=== PATIENT | male | born 1945 | race Two or more races ===

== ENCOUNTER 2020-02-19 11:25 | Outpatient (REF) | payer MEDICARE, OTHER, SELFPAY ==
[2020-02-19 15:13] LABS: PSA,Total (Free>4and<10) 1.52 ng/mL (0.00-4.00)
== END 2020-02-19 11:26 | disposition home or self-care (01) ==
LOC: HO.10HDL 11:25
PROVIDERS: Visit Provider Urology
DX: N40.1 Benign prostatic hyperplasia with lower urinary tract symptoms (principal); Z12.5 Encounter for screening for malignant neoplasm of prostate
CPT/HCPCS: 84153

== ENCOUNTER 2021-01-14 10:55 | Outpatient (REF) | payer MEDICARE, OTHER, SELFPAY ==
[2021-01-14 14:02] LABS: Prostate Specific Antigen 1.87 ng/mL (<0.05-4.0)
== END 2021-01-14 10:56 | disposition home or self-care (01) ==
LOC: HO.10HDL 10:55
PROVIDERS: Visit Provider Urology
DX: R97.20 Elevated prostate specific antigen [PSA] (principal); Z12.5 Encounter for screening for malignant neoplasm of prostate
CPT/HCPCS: 36415; 84153

== ENCOUNTER → 2021-01-21 12:53 | Outpatient (BNVA) | payer MEDICARE, OTHER, SELFPAY | PROVIDERS: PCP Internal Medicine; Visit Provider Urology | DX: Z13.89 Encounter for screening for other disorder (principal) | CPT/HCPCS: Q3014 ==

== ENCOUNTER 2022-01-07 10:35 | Outpatient (REF) | payer MEDICARE, OTHER, SELFPAY ==
[2022-01-07 14:53] LABS: Prostate Specific Antigen 1.86 ng/mL (<0.05-4.0)
== END 2022-01-07 10:36 | disposition home or self-care (01) ==
LOC: HO.10HDL 10:35
PROVIDERS: Visit Provider Urology
DX: Z12.5 Encounter for screening for malignant neoplasm of prostate (principal); N40.1 Benign prostatic hyperplasia with lower urinary tract symptoms; N13.8 Other obstructive and reflux uropathy
CPT/HCPCS: 36415; 84153

== ENCOUNTER → 2022-01-14 08:23 | Outpatient (BNVA) | payer MEDICARE, OTHER, SELFPAY | PROVIDERS: PCP Internal Medicine; Visit Provider Urology | DX: N52.9 Male erectile dysfunction, unspecified (principal); N40.0 Benign prostatic hyperplasia without lower urinary tract symptoms | CPT/HCPCS: Q3014 ==

== ENCOUNTER 2023-01-14 09:21 | Outpatient (AMB) | payer MEDICARE, OTHER, SELFPAY ==
--- NOTE | 2023-01-14 09:28 | MHC.OFFVIS ---
Intake Intake Visit Reasons: 1Y PVR(BPH) Intake Note: Patient is present for BPH/PVR Follow Up Current Medication: Doxazosin Blood Thinners: None PVR: 161 Sales Operations Manager Required: No Accompanied by: Self / Same As Patient Allergies No Known Allergies Allergy (Verified 01/14/23 09:41) HPI HPI Comments History of Present Illness Details Luiz is a very pleasant male. He is a patient of Dr Olvera. He is seen for the following urologic conditions - lower urinary tract symptoms October 2021 admission to hospital with perforated diverticulitis with high output ileostomy Discussed maintaining fluid intake Encouraged increased protein. Did not tolerate Ensure. Suggested increasing ice cream intake. Lower urinary tract symptoms Says he has effective emptying and good stream Remains on doxazosin 1 mg daily for blood pressure and that assists his prostate PSA remaining in range 01/30 1.8, 01/01 1.9 Review in 12 months Erectile dysfunction - not an active issue [facility] Medical History (Updated 01/14/23 @ 13:50 by Harmeet Storey MD) Diabetes mellitus, type II BPH (benign prostatic hyperplasia) Erectile dysfunction Enlarged prostate with lower urinary tract symptoms (LUTS) Nocturia Surgical History (Updated 01/14/23 @ 09:39 by LISA Downing) Hx of colectomy Social History Patient Tobacco Use Status: Former Tobacco user Review of Systems Const Denies chills and Denies fever(s) Card Reports no additional complaints and Denies syncope Resp Denies cough GI Denies abdominal pain and Denies heartburn Reports as per HPI and Denies change in libido Neuro Denies syncope Psych Denies change in libido Endo Denies change in libido Physical Exam Const General: cooperative, healthy appearing, comfortable and no acute distress Orientation/consciousness: patient oriented x3 HEENT Face and sinus: Yes normal facial exam Mouth: moist mucous membranes Neck Neck: Yes normal visual inspection, Yes full ROM and Yes trachea midline Chest Chest palpation & inspection: normal inspection of the chest Resp Effort & Inspection: normal respiratory effort, able to speak in complete sentences and no respiratory distress GI Inspection: Yes normal to inspection Back/Spine/Pelvis Cervical Spine: normal cervical lordosis Thoracic/Lumbar Spine: thoracic and lumbar spine normal to inspection Skin General skin exam: no rashes or lesions noted Neuro General: patient oriented x3, gait normal, tone normal and moves all extremities Extrem General: Yes normal to inspection and Yes capillary refill normal Office Procedures Post Void Residual Post Residual Void Post Void Residual (PVR): 161 [id number]-[id number] Void Residual by ultrasound Results AMB Urinalysis, Automated UA Leukoctes 0 Delma/uL Last Edit by LISA Downing on 01/14/23 09:41 UA Nitrite Negative Last Edit by Darrell James Nico on 01/14/23 09:41 UA Urobilinogen 0.2 mg/dL Last Edit by Darrell James Nico on 01/14/23 09:41 UA Protein 15 mg/dL Last Edit by Darrell James Nico on 01/14/23 09:41 UA pH 6.5 Last Edit by Darrell James Nico on 01/14/23 09:41 UA Blood 25 Daniel/uL Last Edit by Darrell James Nico on 01/14/23 09:41 UA Specific [place] 1.015 Last Edit by Darrell James Nico on 01/14/23 09:41 UA Ketone Negative Last Edit by Darrell James Nico on 01/14/23 09:41 UA Bilirubin 0 mg/dL Last Edit by Darrell James Nico on 01/14/23 09:41 UA Glucose 0 mg/dL Last Edit by Darrell James [facility] on 01/14/23 09:41 Results Reviewed Results Reviewed: Laboratory Last Values Urine pH (Auto) 6.5 01/14/23 09:31 Specific [place] (Auto) 1.015 01/14/23 09:31 Urine Protein (Auto) 15 mg/dL 01/14/23 09:31 Glucose (UA)(Auto) 0 mg/dL 01/14/23 09:31 Urine Ketones (Auto) Negative 01/14/23 09:31 Urine Blood (Auto) 25 Daneil/uL 01/14/23 09:31 Urine Nitrite (Auto) Negative 01/14/23 09:31 Urine Bilirubin (Auto) 0 mg/dL 01/14/23 09:31 Urine Urobilinogen (Auto) 0.2 mg/dL 01/14/23 09:31 Leukocyte Esterase (Auto) 0 Delma/uL 01/14/23 09:31 Assessment & Plan Assessment & Plan (1) BPH (benign prostatic hyperplasia): Code(s): N40.0 - Benign prostatic hyperplasia without lower urinary tract symptoms Qualifiers: Lower urinary tract symptom presence: symptoms present Lower urinary tract symptom detail: urinary frequency Qualified Code(s): N40.1 - Benign prostatic hyperplasia with lower urinary tract symptoms; R35.0 - Frequency of micturition (2) Erectile dysfunction: Code(s): N52.9 - Male erectile dysfunction, unspecified Qualifiers: Erectile dysfunction type: vasculogenic Vasculogenic erectile dysfunction type: due to arterial insufficiency Qualified Code(s): N52.01 - Erectile dysfunction due to arterial insufficiency Orders: Orders AMB Urinalysis Automated Today Z13.9 - Encounter for screening, unspecified AMB Post Void Residual by ultrasound Today N39.8 - Other specified disorders of urinary system Patient Instructions: Imaging studies, laboratory and physical exam results were discussed and reviewed in detail. No major barriers to patient understanding were identified. An opportunity to ask questions regarding the treatment plan was provided. All questions were answered. The patient expressed understanding and agreement with the above treatment plan. The patient is aware they should contact our office by phone for worsening of their current condition or the appearance of new urologic symptoms. Compliance is encouraged with any medications and followup testing that is ordered. It is a privilege to participate in the urologic care of your patient. If you have any questions or concerns regarding treatment for the above conditions, or other urologic issues, please do not hesitate to contact me. The office telephone contact is [phone]. This note is constructed using voice recognition software. While every effort has been made to ensure accuracy compliance quality performance analyst errors may have been included. Yours sincerely, Dr Harmeet Storey MD, [facility] - Urology Providers of Expert, Compassionate Care for the Genitourinary System Coding Level of Care Code Est Pt Level 4 (75824) Diagnoses Benign prostatic hyperplasia with urinary frequency N40.1; R35.0 Lower urinary tract symptom presence: symptoms present Lower urinary tract symptom detail: urinary frequency Erectile dysfunction due to arterial insufficiency N52.01 Erectile dysfunction type: vasculogenic Vasculogenic erectile dysfunction type: due to arterial insufficiency CPT Codes Post Residual Void - PVR CPT Code: 79235-Brst Void Residual by ultrasound ([id number])
== END 2023-01-14 10:18 | disposition home or self-care (01) ==
PROVIDERS: PCP Internal Medicine; Visit Provider Urology
DX: N40.1 Benign prostatic hyperplasia with lower urinary tract symptoms (principal); R35.0 Frequency of micturition; N52.01 Erectile dysfunction due to arterial insufficiency; Z13.9 Encounter for screening, unspecified
CPT/HCPCS: 99213

== ENCOUNTER → 2023-01-14 09:21 | Outpatient (BNVA) | payer MEDICARE, OTHER, SELFPAY | PROVIDERS: Visit Provider Urology | DX: N40.1 Benign prostatic hyperplasia with lower urinary tract symptoms (principal); R35.0 Frequency of micturition; N52.01 Erectile dysfunction due to arterial insufficiency | CPT/HCPCS: 51798; 81003; 99212 ==

== ENCOUNTER 2023-09-21 15:02 | Outpatient (AMB) | payer MEDICARE, OTHER, SELFPAY ==
--- NOTE | 2023-09-21 15:29 | A.OFFVIS_ITS ---
Intake Visit Reasons: BPH follow up Intake Note: Patient is Present for Follow Up Urology Medication: Doxazosin Antibiotic Allergies:None Blood Thinners: None Last PVR: 121 PVR Today: 21 Allergies No Known Allergies Allergy (Verified 09/21/23 15:31) Medication List - Last Reconciled 09/21/23 by Harmeet Storey MD amlodipine 10 mg PO DAILY atorvastatin 40 mg PO DAILY doxazosin 4 mg PO BEDTIME 90 days meloxicam 15 mg PO DAILY metformin 500 mg PO BID simvastatin 80 mg PO DAILY tramadol 50 mg PO DAILY PRN valsartan-hydrochlorothiazide 320-25 mg 1 tab PO DAILY HPI Comments Details: Luiz is a very pleasant male. He is a patient of Dr Olvera. He is seen for the following urologic conditions - lower urinary tract symptoms Yearly review PVR 20 cc October 2021 admission to hospital with perforated diverticulitis with high output ileostomy Discussed maintaining fluid intake Encouraged increased protein. Did not tolerate Ensure. Suggested increasing ice cream intake. Lower urinary tract symptoms Says he has effective emptying and good stream Remains on doxazosin 1 mg daily for blood pressure and that assists his prostate PSA remaining in range 01/30 1.8, 01/01 1.9 Review in 12 months Erectile dysfunction - not an active issue [facility] Medical History Diabetes mellitus, type II BPH (benign prostatic hyperplasia) Erectile dysfunction Enlarged prostate with lower urinary tract symptoms (LUTS) Nocturia Surgical History Hx of colectomy Social History Patient Tobacco Use Status: Former Tobacco user Review of Systems Const Denies chills and Denies fever(s) Card Reports no additional complaints and Denies syncope Resp Denies cough GI Denies abdominal pain and Denies heartburn Reports as per HPI and Denies change in libido Neuro Denies syncope Psych Denies change in libido Endo Denies change in libido Physical Exam Const General: cooperative, healthy appearing, comfortable and no acute distress Orientation/consciousness: patient oriented x3 HEENT Face and sinus: Yes normal facial exam Mouth: moist mucous membranes Neck Neck: Yes normal visual inspection, Yes full ROM and Yes trachea midline Chest Chest palpation & inspection: normal inspection of the chest Resp Effort & Inspection: normal respiratory effort, able to speak in complete sentences and no respiratory distress GI Inspection: Yes normal to inspection Back/Spine/Pelvis Cervical Spine: normal cervical lordosis Thoracic/Lumbar Spine: thoracic and lumbar spine normal to inspection Skin General skin exam: no rashes or lesions noted Neuro General: patient oriented x3, gait normal, tone normal and moves all extremities Extrem General: Yes normal to inspection and Yes capillary refill normal Office Procedures Post Void Residual Post Residual Void Post Void Residual (PVR): 21 [id number]-[id number] Void Residual by ultrasound Assessment & Plan Assessment & Plan (1) Erectile dysfunction: Code(s): N52.9 - Male erectile dysfunction, unspecified Category: Medical Qualifiers: Erectile dysfunction type: vasculogenic Vasculogenic erectile dysfunction type: due to arterial insufficiency Qualified Code(s): N52.01 - Erectile dysfunction due to arterial insufficiency (2) BPH (benign prostatic hyperplasia): Code(s): N40.0 - Benign prostatic hyperplasia without lower urinary tract symptoms Category: Medical Qualifiers: Lower urinary tract symptom presence: symptoms present Lower urinary tract symptom detail: urinary frequency Qualified Code(s): N40.1 - Benign prostatic hyperplasia with lower urinary tract symptoms; R35.0 - Frequency of micturition Plan year;y f/u Orders: Orders AMB Post Void Residual by ultrasound 09/21/23 N40.1 - Benign prostatic hyperplasia with lower urinary tract symptoms, R35.0 - Frequency of micturition Prostate Specific Antigen 364 Days N40.1 - Benign prostatic hyperplasia with lower urinary tract symptoms, R35.0 - Frequency of micturition Patient Instructions: Imaging studies, laboratory and physical exam results were discussed and reviewed in detail. No major barriers to patient understanding were identified. An opportunity to ask questions regarding the treatment plan was provided. All questions were answered. The patient expressed understanding and agreement with the above treatment plan. The patient is aware they should contact our office by phone for worsening of their current condition or the appearance of new urologic symptoms. Compliance is encouraged with any medications and followup testing that is ordered. It is a privilege to participate in the urologic care of your patient. If you have any questions or concerns regarding treatment for the above conditions, or other urologic issues, please do not hesitate to contact me. The office telephone contact is [phone]. This note is constructed using voice recognition software. While every effort has been made to ensure accuracy membership manager errors may have been included. Yours sincerely, Dr Harmeet Storey MD, [facility] - Urology Providers of Expert, Compassionate Care for the Genitourinary System Coding Level of Care Code Est Pt Level 4 (80772) Diagnoses Erectile dysfunction due to arterial insufficiency N52.01 Erectile dysfunction type: vasculogenic Vasculogenic erectile dysfunction type: due to arterial insufficiency Benign prostatic hyperplasia with urinary frequency N40.1; R35.0 Lower urinary tract symptom presence: symptoms present Lower urinary tract symptom detail: urinary frequency CPT Codes Post Residual Void - PVR CPT Code: 46024-Tlzg Void Residual by ultrasound ([id number])
== END 2023-09-21 16:14 | disposition home or self-care (01) ==
PROVIDERS: PCP Internal Medicine; Visit Provider Urology
DX: N52.01 Erectile dysfunction due to arterial insufficiency (principal); N40.1 Benign prostatic hyperplasia with lower urinary tract symptoms; R35.0 Frequency of micturition
CPT/HCPCS: 99214

== ENCOUNTER → 2023-09-21 15:02 | Outpatient (BNVA) | payer MEDICARE, OTHER, SELFPAY | PROVIDERS: PCP Internal Medicine; Visit Provider Urology | DX: N40.1 Benign prostatic hyperplasia with lower urinary tract symptoms (principal); R35.0 Frequency of micturition; N52.01 Erectile dysfunction due to arterial insufficiency | CPT/HCPCS: 51798; 99212 ==

== ENCOUNTER 2024-03-07 09:14 | Outpatient (AMB) | payer MEDICARE, OTHER, SELFPAY ==
--- NOTE | 2024-03-07 09:33 | MHC.OFFVIS ---
Vital Signs 03/07/24 09:47 Height 5 ft 6 in Weight 150 lb 5.684 oz BMI 24.3 BP 142/70 H Blood Pressure Location Rt brachial Position Sitting Respiration 18 Pulse 72 Pulse Source Pulse Oximeter Pulse Oximetry (%) 97 Oxygen Delivery Method Room Air Intake Visit Reasons: Arthritis/ATC MED REC RECIEVED Intake Note: Patient presents for Arthritis. C/O right shoulder pain Allergies metoprolol Allergy (Severe, Verified 03/07/24 09:38) Swelling HPI Comments Details: He received cortisone injection October 2023 with benefit in his right shoulder. A month ago he started experiencing right shoulder pain with certain movements. He continues to do exercises at home learned from physical therapy in the past. He uses tramadol as needed for pain control but he also experiences pain from arthritis in his back. [facility] Medical History Diabetes mellitus, type II BPH (benign prostatic hyperplasia) Erectile dysfunction Enlarged prostate with lower urinary tract symptoms (LUTS) Nocturia Surgical History Hx of colectomy Social History (Updated 03/07/24 @ 09:47 by ARGENTINA Meneses) Household Members: Spouse Housing: Condominium Alcohol intake: current Comment: [facility] Patient Tobacco Use Status: Former Tobacco user Years Smoked: 15 Review of Systems Const All systems reviewed & are unremarkable except as noted in HPI and below Physical Exam Vital Signs: Last Vital Signs Pulse 72 03/07/24 09:47 Resp 18 03/07/24 09:47 BP 142/70 H 03/07/24 09:47 Pulse Ox 97 03/07/24 09:47 Oxygen Delivery Method Room Air 03/07/24 09:47 BMI result Body Mass Index 24.3 Const Other: General: Comfortable Skin: No lesions seen MSK: No tenderness of joints. No subacromial tenderness. Good range of motion of his shoulder. Assessment & Plan Assessment & Plan (1) Osteoarthritis of right glenohumeral joint: Comment: Intermittent pain with range of motion. Pain is tolerable. We discussed conservative management. Code(s): M19.011 - Primary osteoarthritis, right shoulder Category: Medical Plan: He will call office if pain progresses for cortisone injection Continue exercises daily for shoulder strengthening He will continue swimming regularly Return to clinic in 3 months or sooner if needed Coding Level of Care Code Est Pt Level 3 (83137) Complex EM visit Add On G2211 Diagnoses Osteoarthritis of right glenohumeral joint M19.011
[2024-03-07 09:47] VITALS: BP 142/70; PULSE 72; RESP 18; O2SAT 97; BMI 24.3
== END 2024-03-07 10:06 | disposition home or self-care (01) ==
PROVIDERS: PCP Internal Medicine; Visit Provider Internal Medicine Rheumatology
DX: M19.011 Primary osteoarthritis, right shoulder (principal)
CPT/HCPCS: 99213; G2211

== ENCOUNTER → 2024-03-07 09:14 | Outpatient (BNVA) | payer MEDICARE, OTHER, SELFPAY | PROVIDERS: PCP Internal Medicine; Visit Provider Internal Medicine Rheumatology | DX: M19.011 Primary osteoarthritis, right shoulder (principal); M47.9 Spondylosis, unspecified | CPT/HCPCS: 99212 ==

== ENCOUNTER 2024-06-06 13:55 | Outpatient (AMB) | payer MEDICARE, OTHER, SELFPAY ==
[2024-06-06 14:03] VITALS: BP 128/58; PULSE 78; O2SAT 98; BMI 25.2
--- NOTE | 2024-06-06 14:03 | MHC.OFFVIS ---
Vital Signs 06/06/24 14:03 Height 5 ft 6 in Weight 156 lb 4.924 oz BMI 25.2 BP 128/58 L Blood Pressure Location Rt brachial Position Sitting Pulse 78 Pulse Source Pulse Oximeter Pulse Oximetry (%) 98 Oxygen Delivery Method Room Air Intake Visit Reasons: 3 mo f/u Intake Note: Patient presents for Arthritis follow up. Allergies metoprolol Allergy (Severe, Verified 03/07/24 09:38) Swelling HPI HPI 3 mo f/u: Details: He is doing well. About 2 months ago he had increased shoulder pain, which he treated with ibuprofen and Tylenol. Resolved. He exercises daily with weight lifting and stretching. PFSH Medical History Diabetes mellitus, type II BPH (benign prostatic hyperplasia) Erectile dysfunction Enlarged prostate with lower urinary tract symptoms (LUTS) Nocturia Surgical History Hx of colectomy Social History Household Members: [facility] Alcohol intake: current Comment: OCC Patient Tobacco Use Status: Former Tobacco user Years Smoked: 15 Review of Systems Const All systems reviewed & are unremarkable except as noted in HPI and below Physical Exam Vital Signs: Last Vital Signs Pulse 78 06/06/24 14:03 BP 128/58 L 06/06/24 14:03 Pulse Ox 98 06/06/24 14:03 Oxygen Delivery Method Room Air 06/06/24 14:03 BMI result Body Mass Index 25.2 Const Other: General: Comfortable Skin: No lesions seen MSK: No tenderness of joints. No subacromial tenderness. Good range of motion of his shoulder. Assessment & Plan Assessment & Plan (1) Osteoarthritis of right glenohumeral joint: Comment: Pain resolved with home exercise program. Code(s): M19.011 - Primary osteoarthritis, right shoulder Category: Medical Plan: He will call office if pain returns for cortisone injection Continue exercises daily for shoulder strengthening Return to clinic in 6 months or sooner if needed Coding Level of Care Code Est Pt Level 3 (56729) Complex EM visit Add On G2211 Diagnoses Osteoarthritis of right glenohumeral joint M19.011
--- OUTSIDE RECORDS SUMMARY | 2024-06-06 17:23 | XMS_ITS | Continuity of Care Document ---
Author Organization [facility] Address [address] [place] [address]- Care Team Providers Care Java Analyst Name Role Phone Jackson Taylor MD Primary Care Physician [phone] Encounter [facility] Date(s): 05/05/24 - 05/12/24 [facility] [address] [place] [address]- Encounter Diagnosis Dysfunction of both eustachian tubes(Discharge Diagnosis) - 05/05/24 Attending Physician: Not on Staff, Attending MD Encounter Type: Office Visit Allergies, Adverse Reactions, Alerts Substance Criticality Severity Reaction Reaction Severity Status Metoprolol Succinate ER facial swelling Active Immunizations Given and Recorded Vaccine Date Status Refusal Reason influenza virus vaccine, inactivated 01/07/24 Burton rded influenza virus vaccine, inactivated 1 02/16/22 Gi myron influenza virus vaccine, inactivated 02/17/15 Burton rded influenza virus vaccine, inactivated 02/25/14 Burton rded influenza virus vaccine, inactivated 2 01/13/12 Gi myron influenza virus vaccine, inactivated 3 02/23/11 Gi myron influenza virus vaccine, inactivated 4 01/13/10 Gi myron SARS-CoV-2(COVID-19)mRNA-LNP vac([id number]) 01/07/24 Recorded SARS-CoV-2(COVID-19)mRNA-LNP vac([id number]) 02/28/23 Recorded pneumococcal 20-valent conjugate vaccine 01/13/23 Recorded tetanus/diphtheria/pertussis, acel(Tdap) 01/13/23 Recorded tetanus/diphtheria/pertussis, acel(Tdap) 5 08/04/10 Given [id number] bivalent booster vax 01/05/22 Recorded SARS-CoV-2 (COVID-19) mRNA-1273 vaccine 06/13/20 R ecorded SARS-CoV-2 (COVID-19) mRNA-1273 vaccine 05/08/20 R ecorded pneumococcal 13-valent vaccine 02/16/17 Recorded pneumococcal 13-valent vaccine 02/17/15 Recorded hepatitis B adult vaccine 6 02/12/12 Given hepatitis B adult vaccine 01/13/12 Given pneumococcal 23-valent vaccine 7 08/04/10 Given 1Result Comment: [facility] [id number] 2Admin Note: VIS - 3Admin Note: VIS GIVEN 11/04/2010 4Admin Note: VIS GIVEN 11/19/09 [facility] 5Admin Note: vis given 6Admin Note: VIS GIVEN VIS DATE 05/2011 7Admin Note: VIS GIVEN 07/19 Medications acetaminophen 325 mg oral tablet 975 mg, By Mouth, Every 6 hours, Refills 0, Maintenance, 10/25/22 10:46:00 AM EDT, Partial fill uponpatient request if the prescription is for a schedule II opioid drug. Start Date: 10/25/22 Status: Ordered Repeat number: 1 amLODIPine 5 mg oral tablet 5 mg, 1, tablet, By Mouth, Daily, # 90 tablet, Refills 0, Tot. Refills 0, Maintenance, 05/11/24 9:45:00 AM EST, Route to Pharmacy Electronically, [facility] #[id number], Partial fill upon patientrequest if the prescription is for a schedule II opioid drug., 168, cm, 05/11/24 9:31:00 EST, Height, 69.9, kg, 05/11/24 9:27:00 EST, Dry Weight Start Date: 05/11/24 Status: Ordered Quantity: 90.0 Unit: tablet Repeat number: 1 atorvastatin 40 mg oral tablet 1 tablet, By Mouth, Daily, THIS. REPLACES SIMVASTATIN, # 90 tablet, 3 Refills, Maintenance, 10/21/23 3:30:00 PM EDT, [facility] #[id number], 168, cm, 09/14/23 10:27:00 EDT, Height, 64.6, kg,08/09/23 13:06:00 EDT, Dry Weight Start Date: 10/21/23 Status: Ordered Quantity: 90.0 Unit: tablet Repeat number: 1 atropine-diphenoxylate 0.025 mg-2.5 mg oral tablet 2, tablet, By Mouth, 4 times a day, PRN, TAKE 1/2 HOUR BEFORE MEALS AND AT BEDTIME, # 240 capsule, Refills 3, Tot. Refills 3, Maintenance, for loose stool, 03/21/24 12:02:00 PM EST, Route to PharmacyElectronically, [facility] #[id number] Tablet, Partial fill upon patient request if the prescription is for a schedule II opioid drug., 168, cm, 01/25/24 13:29:00 EDT, Height, 64.6, kg, 08/08/2412:06:00 EDT, Dry Weight Start Date: 03/21/24 Status: Ordered Quantity: 240.0 Unit: capsule Repeat number: 4 Holliday Saline Mist 0.65% nasal spray 2 sprays, Nares, Both, 4 times a day, # 1 each, 0 Refills, Maintenance, 05/05/24 4:37:00 PM EST, [facility] #[id number], Partial fill upon patient request if the prescription is for a schedule IIopioid drug., 2 sprays Nares, Both 4 times a day, 168, cm, 05/05/24 16:06:00 EST, Height, 70, kg, 04/24/24 14:23:00 EST, Dry Weight Start Date: 05/05/24 Status: Ordered Quantity: 1.0 Unit: each Repeat number: 1 Indication: Unspecified Eustachian tube disorder, bilateral Benefiber oral powder for reconstitution 10 mL, By Mouth, 2 times a day, PRN Loose Stool, Mix in pudding, Yogart, or applesauce. can take 3 times a day if needed, # 477 Gm, 3 Refills, Maintenance, 09/27/23 2:09:00 PM EDT, REC Powder, [facility] #[id number], Partial fill upon patient request if the prescription is for a schedule II opioid drug., 10 mL By Mouth 2 times a day,PRN:Loose Stool,Instr:Mix in pudding, Yogart, or applesauce.can take 3 times a day if needed, 168, cm, 09/14/23 10:27:00 EDT, Height, 64.6, kg, 08/09/23 13:06:00 EDT, Dry Weight Start Date: 09/27/23 Status: Ordered Quantity: 477.0 Unit: g Repeat number: 4 Claritin 24 Hour Allergy 10 mg oral tablet 1 tablet = 10 mg, By Mouth, Daily, # 30 tablet, 0 Refills, Maintenance, 05/05/24 4:38:00 PM EST, Tablet, [facility] #[id number], Partial fill upon patient request if the prescription is for a schedule II opioid drug., 168, cm, 05/05/24 16:06:00 EST, Height, 70, kg, 04/24/24 14:23:00 EST, Dry Weight Start Date: 05/05/24 Status: Ordered Quantity: 30.0 Unit: tablet Repeat number: 1 Indication: Unspecified Eustachian tube disorder, bilateral D3 By Mouth, Daily, 0 Refills, Maintenance, 06/13/21 10:35:00 AM EST, Partial fill upon patient request if the prescription is for a schedule II opioid drug. Start Date: 06/13/21 Status: Ordered Repeat number: 1 doxazosin 4 mg oral tablet 1 tablet = 4 mg, By Mouth, Daily, TAKE 1 TABLET BY MOUTH AT BEDTIME, # 90 tablet, 3 Refills, Maintenance, 04/16/23 5:42:00 PM EST, Tablet, [facility] #[id number], Partial fill upon patient requestif the prescription is for a schedule II opioid drug., 168, cm, 04/16/23 16:51:00 EST, Height, 74.2, kg, 10/30/22 4:05:00 EDT, Dry Weight Start Date: 04/16/23 Status: Ordered Quantity: 90.0 Unit: tablet Repeat number: 4 ferrous sulfate 325 mg oral enteric coated tablet 1, tablet, By Mouth, Daily, # 90 tablet, Refills 0, Maintenance, 10/27/23 10:54:00 PM EDT, Route to Pharmacy Electronically, [facility] #[id number], 168, cm, 09/14/23 10:27:00 EDT, Height, 64.6, kg, 08/09/23 13:06:00 EDT, Dry Weight Start Date: 10/27/23 Status: Ordered Quantity: 90.0 Unit: tablet Repeat number: 1 fluticasone 50 mcg/inh nasal spray 1 sprays = 50 mcg, Nares, Both, 2 times a day, # 16 Gm, 0 Refills, Maintenance, 05/05/24 4:37:00 PM EST, [place], [facility] #[id number], Partial fill upon patient request if the prescription is for a schedule II opioid drug., 1 sprays Nares, Both 2 times a day, 168, cm, 05/05/24 16:06:00 EST, Height, 70, kg, 04/24/24 14:23:00 EST, Dry Weight Start Date: 05/05/24 Status: Ordered Quantity: 16.0 Unit: g Repeat number: 1 Indication: Unspecified Eustachian tube disorder, bilateral Freestyle Lite Test Strips See Instructions, # 100 each, Refills 3, Tot. Refills 3, Maintenance, Use to check blood sugar daily as needed E11.65, 01/06/23 2:58:00 PM EDT, Supply, 168, cm, 01/06/23 14:57:00 EDT, Height, 74.2, kg, 10/30/22 4:05:00 EDT, Dry Weight Start Date: 01/06/23 Status: Ordered Quantity: 100.0 Unit: each Repeat number: 4 Lomotil 0.025 mg-2.5 mg oral tablet 1, tablet, By Mouth, 4 times a day, 30 minutes before meals and at bedtime, # 120 tablet, Refills 3, Tot. Refills 3, Maintenance, 09/27/23 4:19:00 PM EDT, Route to Pharmacy Electronically, [facility] #[id number] Tablet, Partial fill upon patient request if the prescription is for a schedule II opioid drug., 168, cm, 09/14/23 10:27:00 EDT, Height, 64.6, kg, 08/09/23 13:06:00 EDT, Dry Weight Start Date: 09/27/23 Status: Ordered Quantity: 120.0 Unit: tablet Repeat number: 4 loperamide 2 mg oral capsule 1-2 capsule, By Mouth, Every 6 hours, PRN, # 100 capsule, Refills 1, Tot. Refills 1, Maintenance, as needed for loose stool, 04/13/24 7:49:00 AM EST, Route to Pharmacy Electronically, [facility] #[id number], 168, cm, 04/04/24 11:17:00 EST, Height, 64.6, kg, 08/09/23 13:06:00 EDT, Dry Weight Start Date: 04/13/24 Status: Ordered Quantity: 100.0 Unit: capsule Repeat number: 2 traMADol 50 mg oral tablet 1 tablet, By Mouth, Daily, PRN NEEDED FOR MODERATE PAIN, # 30 tablet, 0 Refills, Maintenance, 04/11/24 7:42:00 PM EST, [facility] #[id number], 168, cm, 04/04/24 11:17:00 EST, Height, 64.6, kg, 08/09/23 13:06:00 EDT, Dry Weight Start Date: 04/11/24 Status: Ordered Quantity: 30.0 Unit: tablet Repeat number: 1 valsartan 320 mg oral tablet 1 tablet = 320 mg, By Mouth, Daily, # 90 tablet, 0 Refills, Maintenance, 04/24/24 2:35:00 PM EST, [facility] #[id number], 168, cm, 04/24/24 14:27:00 EST, Height, 70, kg, 04/24/24 14:23:00 EST, Dry Weight Start Date: 04/24/24 Status: Ordered Quantity: 90.0 Unit: tablet Repeat number: 1 Vitamin D 95846 iu oral capsule 50,000 International_Units, By Mouth, Daily, Refills 0, Maintenance, 06/14/23 1:11:00 PM EST, Partialfill upon patient request if the prescription is for a schedule II opioid drug. Start Date: 06/14/23 Status: Ordered Repeat number: 1 zolpidem 5 mg oral tablet 1 tablet, By Mouth, Daily at bedtime, PRN NEEDED FOR SLEEP, DO NOT FILL UNTIL 05/15/24; PLEASE DISREGARD PREVIOUS RX. 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 Confirmed Active History of diverticulitis Confirmed Active Hyperlipidemia Confirmed Active Hypertension Confirmed Active Insomnia Confirmed Active Elevated LFTs Confirmed Active Microscopic hematuria Confirmed Active Colon polyp Confirmed Active Right shoulder pain; [facility] Confirmed Active Diagnosis Diagnosis Type Effective Dates Health Status Clinical Service Informant Dysfunction of both eustachian tubes Discharge Diagnosis 05/05/24 Vital Signs Most recent to oldest [Reference Range]: 1 Height 168 cm (05/05/24 4:06 PM) Oxygen Saturation [94-100 %] 99 % (05/05/24 4:06 PM) Pulse Rate [55-90 bpm] 83 bpm (05/05/24 4:06 PM) Blood Pressure [90-138/55-84 mm Hg] 151/ 64mm Hg *H* (05/05/24 4:06 PM) Respiratory Rate [16-30 br/min] 16 br/mi n (05/05/24 4:06 PM) Temperature [96.8-100.4 DegF] 97.1 DegF (05/05/24 4:06 PM) Mode of Delivery (Oxygen) Room air (05/05/24 4:06 PM) Blood pressure sites Arm, right (05/05/24 4:06 PM) Temperature Route Temporal (05/05/24 4:06 PM) Social History Social History Type Response Smoking Status Smoker, current stat us unknown; Other: Quit 1994; entered on: 08/31/22 Sex Sex Representation Male (finding) Implantable Device List Procedure Provider Procedure Date Device Type Site Sigmoidoscopy Flexible Zahraa Cannon MD 08/09/23 Unknow n Colon Device Identifier Serial Number Lot or Batch Number Manufacturing Date Expiration Date Distinct Identification Code MRI Safety Implantable Status Assigning Authority Unknown Unknown [id number] Unknown 11/10/27 Unknown Unknown Active Unk nown Procedure Provider Procedure Date Device Type Site Sigmoidoscopy Flexible Zahraa Cannon MD 08/09/23 Unknow n Colon Device Identifier Serial Number Lot or Batch Number Manufacturing Date Expiration Date Distinct Identification Code MRI Safety Implantable Status Assigning Authority Unknown Unknown [id number] Unknown 03/11/28 Unknown Unknown Active Un known Procedure Provider Procedure Date Device Type Site Sigmoidoscopy Flexible Davis PERERA, Zahraa Dean 08/09/23 Unknow n Colon Device Identifier Serial Number Lot or Batch Number Manufacturing Date Expiration Date Distinct Identification Code MRI Safety Implantable Status Assigning Authority Unknown Unknown [id number] Unknown 12/11/27 Unknown Unknown Active Unk nown Note * Yumiko Rogers: PERFORM Event Display: Patient Education/Instruction Authored Date: [id number] Ambulatory Adult Visit Summary [facility] [address] [address] Name: SRINIVASA SOLANO : 1945?? Visit: 05/05/2024 16:03?? Ambulatory Visit Instructions ?? Your Care Team Primary Care Provider Jackson Taylor MD? This Visit Provider [facility] Your Diagnosis Dysfunction of both eustachian tubes Vitals Signs Temperature: 97.1 DegF Height: 168 cm Pulse Rate: 83 bpm ?? Respiratory Rate: 16 br/min ?? Systolic Blood Pressure:??151 mm Hg??High ?? Diastolic Blood Pressure: 64 mm Hg ?? Oxygen Saturation: 99 % ?? What to do next Scheduled Follow-Up Appointments Wednesday 2:00 PM EDT ?? With: Casey PERERA, Elizabeth Morris Where: [address] [place] [address]- Status: Pending Future Orders Hepatic Function Panel (LFT's) - Once, *Est. 06/21/23 every 2 week(s) (+/- 2 days) for 3 months, Future Order?? Hepatic Function Panel (LFT's) - Routine, Once, 07/05/23 3:00:00 EDT every 2 week(s) for 2 months, Future Order, [facility], Blood?? CBC w/ Differential - Routine, Once, 08/29/23 14:26:00 EDT, Within 3 Days, [facility], Blood?? D Dimer - Routine, Once, 08/29/23 14:26:00 EDT, Within 3 Days, [facility], Blood?? CBC - Routine, Once, 10/26/23 9:52:00 EDT, Within 3 Days, [facility], Blood?? Comprehensive Metabolic Panel - Routine, Once, 10/26/23 9:52:00 EDT, Within 3 Days, [facility], Blood?? Hemoglobin A1C (Monitoring) - Routine, Once, 04/24/24 14:43:00 EST, Order for Today, [facility], Blood?? Comprehensive Metabolic Panel - Routine, Once, 04/24/24 14:43:00 EST, Order for Today, [facility], Blood?? Lipid Panel - Routine, Once, 04/24/24 14:44:00 EST, Order for Today, [facility], Blood?? Microalbumin Urine - Routine, Once, 04/24/24 14:44:00 EST, Order for Today, [facility], Urine?? Medications The list below reflects the information in our records and provided by you today along with any changes made during this visit. Please continue your medications until treatment is completed or stopped by your provider. If this is different from the information you have or there are other questions,please contact the prescribing provider. What How Much When Why Instructions New Fluticasone Nasal (fluticasone 50 mcg/ inh nasal spray) 1 spray(s) Nares, Both Twice a day Dysfunction of both eustachian tubes Pickup at [facility] #[id number] New Loratadine (Claritin 24 Hour Allergy 10 mg oral tablet) 1 tab(s) Oral Daily Dysfunction of both eustachian tubes Pickup at [facility] #[id number] New PredniSONE (predniSONE 20 mg oral tablet) 2 tab(s) Oral Daily Dysfunction of both eustachian tubes Duration: 5 Days with food or milk ?? Pickup at [facility] #[id number] New Sodium Chloride Nasal (Holliday Saline Mist 0.65% nasal spray) 2 spray(s) Nares, Both 4 times a day Dysfunction of both eustachian tubes Pickup at [facility] #[id number] Unchanged Acetaminophen (acetaminophen 325 mg oral tablet) 975 Milligram Oral Every 6 hours Unchanged Atorvastatin (atorvastatin 40 mg oral tablet) 1 tab(s) Oral Daily THIS. REPLACES SIMVASTATIN ?? Unchanged Atropine / Diphenoxylate (atropine-diphenoxylate 0.025 mg-2.5 mg oral tablet) 2 tab(s) Oral 4 times a day as needed for for loose stool TAKE 1/ 2 HOUR BEFORE MEALS AND AT BEDTIME ?? Unchanged Atropine / Diphenoxylate (Lomotil 0.025 mg-2.5 mg oral tablet) 1 tab(s) Oral 4 times a day 30 minutes before meals and at bedtime ?? Unchanged Cholecalciferol (D3) Oral Daily Unchanged Doxazosin (doxazosin 4 mg oral tablet) 1 tab(s) Oral Daily TAKE 1 TABLET BY MOUTH AT BEDTIME ?? Unchanged Durable Medical Equipment (Zilicostyle Lite Test Strips) See instructions Use to check blood sugar daily as needed ?? E11.65 ?? Unchanged Ergocalciferol (Vitamin D 68703 iu oral capsule) 50,000 International Unit Oral Daily Unchanged Ferrous Sulfate (ferrous sulfate 325 mg oral enteric coated tablet) 1 tab(s) Oral Daily Unchanged Loperamide (loperamide 2 mg oral capsule) 1-2 capsule Oral Every 6 hours as needed for as needed for loose stool Unchanged Tramadol (traMADol 50 mg oral tablet) 1 tab(s) Oral Daily as needed for NEEDED FOR MODERATE PAIN Unchanged Valsartan (valsartan 320 mg oral tablet) 1 tab(s) Oral Daily Unchanged wheat dextrin (Benefiber oral powder for reconstitution) 10 Milliliter Oral Twice a day as needed for Loose Stool Mix in pudding, Yogart, or applesauce. can take 3 times a day if needed ?? Unchanged Zolpidem (zolpidem 5 mg oral tablet) 1 tab(s) Oral Daily at Bedtime as needed for NEEDED FOR SLEEP DO NOT FILL UNTIL ; PLEASE DISREGARD PREVIOUS RX. PATIENT USING COUPON, NOT INSURANCE ?? [id number] [address], [place] [id number] [phone] Medications and Immunizations Administered Medications Given During Visit No medications given during this visit.?? Allergies (NKA means No Known Allergies) Metoprolol Succinate ER??(facial swelling) Common Emergency Awareness Tips IS IT A STROKE? Act FAST and Check for these signs: FACE Does the face look uneven? ARM Does one arm drift down? SPEECH Does their speech sound strange? TIME Call at any sign of stroke ?? Heart Attack Signs Chest discomfort: Most heart attacks involve discomfort in the center of the chest and lasts more than a few minutes, or goes away and comes back. It can feel like uncomfortable pressure, squeezing, fullness or pain. Discomfort in upper body: Symptoms can include pain or discomfort in one or both arms, back, neck, jaw or stomach. Shortness of breath: With or without discomfort. Other signs: Breaking out in a cold sweat, nausea, or lightheaded. Remember, MINUTES DO MATTER. If you experience any of these heart attack warning signs, call to get immediate medical attention! ?? Smoking can increase your chances of developing chronic health problems and can cause harmful effects to other family members in your house. If you smoke, you are strongly encouraged to quit. Please call [facility] at [phone] or [phone] ([phone]) or log in to [email or web address] for referrals to smoking cessation programs. ?? The National Suicide Prevention Hotline is available 02/11 if you or someone you know needs to find a reason to keep living. By calling 4-939-206-[employer] (3922) you'll be connected to a skilled, trained counselor at a crisis center in your area. [facility] CallAround Portal You can view and manage your care through the patient portal or by using a health care harris of your choosing. [employer] is a website that allows you to securely view your medical information including your hospital discharge summary, office visit summaries, medications and follow-up visits. You can also request appointments, renew medications, and request access to your medical information using a health care harris of your choosing, or just ask a question. You can enroll at [email or web address] or register during your next office visit. [facility], in keeping with [facility] guidance, no longer requires face masks for staff, patientsor visitors in most situations. Similiar to time spent indoors at other locations, there is the chance that you were exposed to repiratory viruses during your time with us (such as flu or COVID-19). If you develop symptoms concerning for a viral respiratory infection, please seek testing (and treatment if indicated) from your medical provider or home test kit. ?? Disclaimer: The information provided is of a general nature and is intended to be used in conjunction with the recommendations and advice of your health care practitioner. Every effort has been made to ensure that the information provided is accurate and complete at the time it is provided to you however, as your needs change, or, as new information becomes available, different or additional instructions may be required. ?? If you have questions, please consult with your primary care provider or pharmacist, as appropriate. This information is not intended to serve as substitution for assessment and evaluation by a qualified health care provider. If you do not have a primary care provider, you may find a [facility] provider by calling [facility] at [phone]. * Safia Carpio: PERFORM Event Display: Patient Education Leaflets Authored Date: [id number] Eustachian Tube Problems ?? [id number] Eustachian Tube Problems: Care Instructions Overview Missing Image - Cannot convert non embedded image The eustachian (say cof-TRFU-[id number] ) tubes connect the middle ear on each side to the back of the throat. They keep air pressure stable in the ears. If your eustachian tubes become blocked, the air pressure in your ears changes. A quick change in air pressure can cause eustachian tubes to close up. This might happen when an airplane changes altitude or when a construction superintendent goes up or down underwater. And a cold can make the tubes swell and block the fluid in the middle ear from draining out. That can cause pain. Eustachian tube problems often clear up on their own or after treating the cause of the blockage. If your tubes continue to be blocked, you may need surgery. Follow-up care is a palomares part of your treatment and safety. Be sure to make and go to all appointments, and call your doctor if you are having problems. It's also a good idea to know your test resultsand keep a list of the medicines you take. How can you care for yourself at home? Try a simple exercise to help open blocked tubes. Close your mouth, hold your nose, and gently blow as if you are blowing your nose. Yawning and chewing gum also may help. You may hear or feel a pop when the tubes open. ??? To ease ear pain, apply a warm washcloth or a heating pad set on low.There may be some drainage from the ear when the heat melts earwax. Put a cloth between the heat source and your skin. ??? If your doctor prescribed antibiotics, take them as directed. Do not stop taking them just because you feel better. You need to take the full course of antibiotics. ??? Be safewith medicines. Depending on the cause of the problem, your doctor may recommend [id number] medicine. For example, adults may try decongestants for cold symptoms or nasal spray steroids for allergies. Follow the instructions carefully. ??? Be careful with cough and cold medicines. Don't give them to children younger than 6, because they don't work for children that age and can even be harmful. For children 6 and older, always follow all the instructions carefully. Make sure you know how much medicine to give and how long to use it. And use the dosing device if one is included. When should you call for help? Missing Image - Cannot convert non embedded image Call your doctor now or seek immediate medical care if: ? You develop sudden, complete hearing loss. ? You have severe pain or feel dizzy. ? You have new or increasing pus or blood draining from your ear. ? You have redness, swelling, or pain around or behind the ear. Watch closely for changes in your health, and be sure to contact your doctor if: ? You do not get better after 2 weeks. ? You have any new symptoms, such as itching or a feeling of fullness in the ear. Current as of: January 06, 2023 Content Version: 14.0 Care instructions adapted under license by your healthcare professional. If you have questions about a medical condition or this instruction, always ask your healthcare professional. [employer] disclaims any warranty or liability for your use of this information. ? [id number] [employer]lickr. ?? * Safia Carpio: PERFORM Event Display: Patient Education Leaflets Authored Date: [id number] Earache, No Infection (Adult) ?? [id number] Earache, No Infection (Adult) Earaches can happen without an infection. They can occur when air and fluid build up behind the eardrum. They may cause a feeling of fullness and discomfort. They may also impair hearing. This is called otitis media with effusion (OME) or serous otitis media. It means there is fluid in the middle ea r. It is not the same as acute otitis media, which is often from an infection. OME can happen when you have a cold if congestion blocks the passage that drains the middle ear. This passage is called the eustachian tube. OME may also occur with nasal allergies or after a bacterial infection in the middle ear. Other causes are: ??? Trauma ??? Bacterial infection of the mastoid bone (mastoiditis) ??? Tumor ??? Changes in pressure, such as from flying or scuba diving The pain or discomfort may come and go. You may hear clicking or popping sounds when you chew or swallow. You may feel that your balance is off. Or you may hear ringing in the ear. It often takes from several weeks up to 3 months for the fluid to clear on its own. Oral pain relievers and ear drops help if there is pain. Decongestants and antihistamines sometimes help. Antibiotics don't help since there is no infection. Your healthcare provider may give you a nasal spray to help reduce swelling in the nose and eustachian tube. This can allow the ear to drain. If your OME doesn't get better after 3 months, surgery may be used to drain the fluid. A small tubemay also be put in the eardrum to help with drainage. Because the middle ear fluid can become infected, watch for signs of an infection. These may develop later. They may include increased ear pain, fever, or drainage from the ear. Home care These home-care tips will help you take care of yourself: ??? You may use vrzp-fwi-zodcqcz medicineas directed by your healthcare provider to control pain, unless medicine was prescribed. Talk with your provider before using any medicines if you have chronic liver or kidney disease or ever had a stomach ulcer or GI bleeding.. ??? Ask your provider if you may use txen-jci-gwcprxv decongestants such as phenylephrine or pseudoephedrine. Keep in mind they are not always helpful. ??? Talk with yourprovider about using nasal spray decongestants. Don't use them for more than 3 days, or as directedby your provider. Longer use can make congestion worse. Prescription nasal sprays from your provider don't often have such restrictions. ??? Antihistamines may help if you are also having allergy symptoms. ?? Follow-up care Follow up with your provider as advised. ?? When to get medical advice Call your healthcare provider right away if any of the following occur: ??? Ear pain that gets worse or that does not start to get better? Fever of 100.4??F (38??C) or higher, or as directed by your healthcare provider ??? Fluid or blood draining from the ear ??? Headache or sinus pain ??? Changes in hearing ?? Call 911 Call 911 if any of the following occur: ??? Stiff neck ??? Unusual drowsiness or confusion ??? Shortness of breath ?? Last Reviewed Date: 2021 ?? [id number] [employer]. All rights reserved. This information is not intended as a substitute for professional medical care. Always follow your healthcare professional's instructions. ?? Patient Care team information Care Team Personnel Name: Danitza Monte RN Position: [facility] RN Member Role: Primary Care Nurse Name: Piedad Covarrubias RN Position: [facility] RN Member Role: Primary Care Nurse Name: Margarito Dahl RN Position: S RN Member Role: Primary Care Nurse Name: Jackson Taylor MD Position: [facility] Physician - Primary Care Member Role: PCP Address: [facility] [address]- Telecom: Name: Jackson Bland MD Position: [facility] Renal MD Member Role: Lifetime Consulting Physician Address: [address] [place] [address] [address] [facility] [place] [address]- Telecom: Name: Mckayla Haro RN Position: S RN Member Role: Primary Care Nurse Name: Gail De La Cruz RN Position: S RN Member Role: Primary Care Nurse Name: Venecia Polanco RN Position: S RN Member Role: Primary Care Nurse Name: Farrah Jones RN Position: [facility] RN Member Role: Primary Care Nurse Name: Maine Gutierrez RN Position: S RN Member Role: Primary Care Nurse Name: Erik Issa RN Position: S RN Member Role: Primary Care Nurse Care Team Related Persons Name: RUSS JANIYA Insurance Providers Guarantor name: [facility]A [facility] [employer]Around Plan Information #: 2 Payer: [facility] Member Number: [id number] Policy Number: NA Group Number: [id number] Health Plan Information #: 1 Payer: MEDICARE PART B OUTPT Member Number: [id number] Policy Number: NA Group Number: NA
--- OUTSIDE RECORDS SUMMARY | 2024-06-06 17:23 | XMS_ITS | Clinical Summary ---
Author Organization [facility], Address [address] [place] [address] [place] [address] Phone Care Team Providers Care Batter Out Name Role Phone Jackson Taylor MD Primary Care Provider [phone] Allergies Active Allergy Reactions Criticality Noted Date Comments Metoprolol 01/30/2021 Medications doxazosin (CARDURA) 2 MG tablet Take 2 mg by mouth every night Active atorvastatin (LIPITOR) 20 MG tablet Take 20 mg by mouth 1 (one) time each day Active Active Problems No known active problems Social History Tobacco Use Types Packs/Day Years Used Date Smoking Tobacco: Never Assessed Sex and Gender Information Value Date Recorded Sex Assigned at Not on file Legal Sex Male 3:28 PM EDT Gender Identity Not on file Sexual Orientation Not on file Plan of Treatment Health Maintenance Due Date Last Done Comments Pneumococcal Vaccine: 65+ Years (3 of 3 - PPSV23 or PCV20) 02/16/2022 02/16/2017, 02/17/2015, 08/04/2010 Diabetes: Hemoglobin A1C 09/01/2023 Diabetes: Ophthalmology Exam 09/01/2023 Diabetes: Pedal Pulse Checked 09/01/2023 Diabetes: Sensory Foot Exam 09/01/2023 Diabetes: Visual Foot Exam 09/01/2023 Influenza Vaccine (#1) 2023 Hepatitis B Vaccine Aged Out 02/12/2012, 01/13/2012 No longer eligible based on patient's age to complete this topic Insurance MEDICARE [facility] Care Teams Batter Out Relationship Specialty Start Date End Date Jackson Taylor MD [address] [place] [address] PCP - General Internal Medicine 08/17/23
--- OUTSIDE RECORDS SUMMARY | 2024-06-06 17:23 | XMS_ITS | Continuity of Care Document ---
Author Organization [facility] Address [address] [place] [address]- Care Team Providers Care Marketing Strategy Lead Name Role Phone Jackson Taylor MD Primary Care Physician [phone] [id number] Date(s[facility]/26/24 - 06/02/24 [facility] [address] [place], [place] [address] Attending Physician: Not on Staff, Attending MD [...] vaccine, inactivated 4 01/13/10 Gi myron SARS-CoV-2(COVID-19)mRNA-LNP vac([id number]) 01/07/24 Recorded SARS-CoV-2(COVID-19)mRNA-LNP vac(zwb088) 02/28/23 Recorded pneumococcal 20-valent conjugate vaccine 01/13/23 Recorded tetanus/diphtheria/pertussis, acel(Tdap) 01/13/23 Recorded tetanus/diphtheria/pertussis, acel(Tdap) 5 08/04/10 Given [id number] bivalent booster vax 01/05/22 Recorded SARS-CoV-2 (COVID-19) mRNA-1273 vaccine 06/13/20 R ecorded SARS-CoV-2 (COVID-19) mRNA-1273 vaccine 05/08/20 R ecorded pneumococcal 13-valent vaccine 02/16/17 Recorded pneumococcal 13-valent vaccine 02/17/15 Recorded hepatitis B adult vaccine 6 02/12/12 Given hepatitis B adult vaccine 01/13/12 Given pneumococcal 23-valent vaccine 7 08/04/10 Given 1Result Comment: [facility] [id number] 2Admin Note: VIS 10-21 3Admin Note: VIS GIVEN 11/04/2010 4Admin Note: VIS GIVEN 11/19/09 [facility] 5Admin Note: vis given 6Admin Note: VIS GIVEN VIS DATE 05/2011 7Admin Note: VIS GIVEN 07/19 Medications acetaminophen 325 mg oral tablet 975 mg, By Mouth, Every 6 hours, Refills 0, Maintenance, 10/25/22 10:46:00 AM EDT, Partial fill uponpatient request if the prescription is for a schedule II opioid drug. Start Date: 10/25/22 Status: Ordered Repeat number: 1 amLODIPine 10 mg oral tablet 1 tablet = 10 mg, By Mouth, Daily, # 90 tablet, 1 Refills, Maintenance, 05/28/24 2:20:00 PM EST, Tablet, [email or web address] #[id number], Partial fill upon patient request if the prescription is for a schedule II opioid drug., 168, cm, 05/11/24 9:31:00 EST, Height, 69.9, kg, 05/11/24 9:27:00 EST, Dry Weight Start Date: 05/28/24 Status: Ordered Quantity: 90.0 Unit: tablet Repeat number: 2 atorvastatin 40 mg oral tablet 1 tablet, By Mouth, Daily, THIS. REPLACES SIMVASTATIN, # 90 tablet, 3 Refills, Maintenance, 10/21/23 3:30:00 PM EDT, [facility] #[id number], 168, cm, 09/14/23 10:27:00 EDT, Height, 64.6, [...] 03/21/24 12:02:00 PM EST, Route to PharmacyElectronically, [email or web address] #[id number] Tablet, Partial fill upon patient request if the prescription is for a schedule II opioid drug., 168, cm, 01/25/24 13:29:00 EDT, Height, 64.6, kg, 08/08/2412:06:00 EDT, Dry Weight Start Date: 03/21/24 Status: Ordered Quantity: 240.0 Unit: capsule Repeat number: 4 [place] Saline Mist 0.65% nasal spray 2 sprays, Nares, Both, 4 times a day, # 1 each, 0 Refills, Maintenance, 05/05/24 4:37:00 PM EST, [email or web address] #[id number], Partial fill upon patient request if the [...] Maintenance, 09/27/23 2:09:00 PM EDT, REC Powder, [email or web address] #12357, Partial fill upon patient request if the [...] Refills, Maintenance, 05/05/24 4:38:00 PM EST, Tablet, [facility] #54855, Partial fill upon patient request if the [...] Refills, Maintenance, 04/16/23 5:42:00 PM EST, Tablet, [email or web address] #[id number], Partial fill upon patient requestif the prescription [...] 10:54:00 PM EDT, Route to Pharmacy Electronically, [facility] #[id number], 168, cm, 09/14/23 10:27:00 EDT, Height, 64.6, kg, 08/09/23 13:06:00 EDT, Dry Weight Start Date: 10/27/23 Status: Ordered Quantity: 90.0 Unit: tablet Repeat number: 1 fluticasone 50 mcg/inh nasal spray 1 sprays = 50 mcg, Nares, Both, 2 times a day, # 16 Gm, 0 Refills, Maintenance, 05/05/24 4:37:00 PM EST, [place], [facility] #[id number], Partial fill upon patient request if the [...] 4:19:00 PM EDT, Route to Pharmacy Electronically, [facility] #[id number] Tablet, Partial fill upon patient request if [...] 7:49:00 AM EST, Route to Pharmacy Electronically, [facility] #70149, 168, cm, 04/04/24 11:17:00 EST, Height, 64.6, kg, 08/09/23 13:06:00 EDT, Dry Weight Start Date: 04/13/24 Status: Ordered Quantity: 100.0 Unit: capsule Repeat number: 2 traMADol 50 mg oral tablet 1 tablet, By Mouth, Daily, PRN NEEDED FOR MODERATE PAIN, # 30 tablet, 0 Refills, Maintenance, 05/30/24 9:33:00 PM EST, [email or web address] #60766, 168, cm, 05/11/24 9:31:00 EST, Height, 69.9, kg, 05/11/24 9:27:00 EST, Dry Weight Start Date: 05/30/24 Status: Ordered Quantity: 30.0 Unit: tablet Repeat number: 1 valsartan 320 mg oral tablet 1 tablet = 320 mg, By Mouth, Daily, # 90 tablet, 0 Refills, Maintenance, 04/24/24 2:35:00 PM EST, [email or web address] #[id number], 168, cm, 04/24/24 14:27:00 EST, Height, 70, kg, 04/24/24 14:23:00 EST, Dry Weight Start Date: 04/24/24 Status: Ordered Quantity: 90.0 Unit: tablet Repeat number: 1 Vitamin D 04233 iu oral capsule 50,000 International_Units, By Mouth, [...] 0 Refills, Maintenance, 04/24/24 2:52:00 PM EST, [facility], 168, cm, 04/24/24 [...] shoulder pain; [facility] Confirmed Active Social History Social History Type Response Smoking [...] Safety Implantable Status Assigning Authority Unknown Unknown [id number] Unknown 11/10/27 Unknown Unknown Active Unk nown Procedure Provider Procedure Date Device Type Site Sigmoidoscopy Flexible Zahraa Cannon MD 08/09/23 Unknow n Colon Device Identifier Serial Number Lot or Batch Number Manufacturing Date Expiration Date Distinct Identification Code MRI Safety Implantable Status Assigning Authority Unknown Unknown [id number] Unknown 03/11/28 Unknown Unknown Active Un known Procedure Provider Procedure Date Device Type Site Sigmoidoscopy Flexible Zahraa Cannon MD 08/09/23 Unknow n Colon Device Identifier Serial Number Lot or Batch Number Manufacturing Date Expiration Date Distinct Identification Code MRI Safety Implantable Status Assigning Authority Unknown Unknown [id number] Unknown 12/11/27 Unknown Unknown Active Unk nown Patient Care team information Care Team Personnel Name: Danitza Monte RN Position: S RN Member Role: Primary Care Nurse Name: Piedad Covarrubias RN Position: S RN Member Role: Primary Care Nurse Name: Margarito Dahl RN Position: S RN Member Role: Primary Care Nurse Name: Jackson Taylor MD Position: [facility] Physician - Primary Care Member Role: PCP Address: [address] [address]- Telecom: Name: Jackson Bland MD Position: [facility] Renal MD Member Role: Lifetime Consulting Physician Address: [address] [place], [place] [address]E [facility] [place] [address]- Telecom: Name: Mckayla Haro RN Position: S RN Member Role: Primary Care Nurse Name: Gail De La Cruz RN Position: S RN Member Role: Primary Care Nurse Name: Venecia Polanco RN Position: S RN Member Role: Primary Care Nurse Name: Farrah Jones RN Position: S RN Member Role: Primary Care Nurse Name: Maine Gutierrez RN Position: [facility] RN Member Role: Primary Care Nurse Name: Erik Issa RN Position: [facility] RN Member Role: Primary Care Nurse Care Team Related Persons Name: [facility], JANIYA Insurance Providers Guarantor name: [facility] Health Plan Information #: 2 Payer: [facility] Member Number: [id number] Policy Number: NA Group Number: [id number] Health Plan Information #: 1 Payer: MEDICARE PART B OUTPT Member Number: [id number] Policy Number: NA Group Number: NA
--- OUTSIDE RECORDS SUMMARY | 2024-06-06 17:23 | XMS_ITS | Continuity of Care Document ---
Author Organization [address] [place] [address]- Care Team Providers Care Electrical Equipment Assembler Name Role Phone Claudia PERERA, Jackson Primary Care Physician Encounter [facility] Date(s): 04/10/24 - 05/10/[address] [place], [place] [address] Encounter Type: Triage Allergies, Adverse Reactions, Alerts Substance Criticality Severity [...] vaccine, inactivated 4 01/13/10 Gi myron SARS-CoV-2(COVID-19)mRNA-LNP vac(hne887) 01/07/24 Recorded SARS-CoV-2(COVID-19)mRNA-LNP vac(uyt428) 02/28/23 Recorded pneumococcal 20-valent conjugate vaccine 01/13/23 Recorded tetanus/diphtheria/pertussis, acel(Tdap) 01/13/23 Recorded tetanus/diphtheria/pertussis, acel(Tdap) 5 08/04/10 Given [id number] bivalent booster vax 01/05/22 Recorded SARS-CoV-2 (COVID-19) mRNA-1273 vaccine 06/13/20 R ecorded SARS-CoV-2 (COVID-19) mRNA-1273 vaccine 05/08/20 R ecorded pneumococcal 13-valent vaccine 02/16/17 Recorded pneumococcal 13-valent vaccine 02/17/15 Recorded hepatitis B adult vaccine 6 02/12/12 Given hepatitis B adult vaccine 01/13/12 Given pneumococcal 23-valent vaccine 7 08/04/10 Given 1Result Comment: [facility] [id number] 2Admin Note: VIS 10-21 3Admin Note: VIS GIVEN 11/04/2010 4Admin Note: VIS GIVEN 11/19/09 [facility] 5Admin Note: vis given 6Admin Note: VIS GIVEN VIS DATE 05/2011 7Admin Note: VIS GIVEN 07/19 Medications acetaminophen 325 mg oral tablet 975 mg, By Mouth, Every 6 hours, Refills 0, Maintenance, 10/25/22 10:46:00 AM EDT, Partial fill uponpatient request if the prescription is for a schedule II opioid drug. Start Date: 10/25/22 Status: Ordered Repeat number: 1 atorvastatin 40 mg oral tablet 1 tablet, By Mouth, Daily, THIS. REPLACES SIMVASTATIN, # 90 tablet, 3 Refills, Maintenance, 10/21/23 3:30:00 PM EDT, [facility] #[id number], 168, cm, 09/14/23 10:27:00 EDT, Height, 64.6, [...] 03/21/24 12:02:00 PM EST, Route to PharmacyElectronically, [facility] #[id number] Tablet, Partial fill upon patient request if the prescription is for a schedule II opioid drug., 168, cm, 01/25/24 13:29:00 EDT, Height, 64.6, kg, 08/08/2412:06:00 EDT, Dry Weight Start Date: 03/21/24 Status: Ordered Quantity: 240.0 Unit: capsule Repeat number: 4 [place] Saline Mist 0.65% nasal spray 2 sprays, Nares, Both, 4 times a day, # 1 each, 0 Refills, Maintenance, 05/05/24 4:37:00 PM EST, [facility] #46030, Partial fill upon patient request if the [...] Maintenance, 09/27/23 2:09:00 PM EDT, REC Powder, [facility] #[id number], Partial fill upon patient request if the [...] Refills, Maintenance, 05/05/24 4:38:00 PM EST, Tablet, [facility] #85366, Partial fill upon patient request if the [...] Refills, Maintenance, 04/16/23 5:42:00 PM EST, Tablet, [facility] #14720, Partial fill upon patient requestif the prescription [...] 10:54:00 PM EDT, Route to Pharmacy Electronically, [facility] #[id number], 168, cm, 09/14/23 10:27:00 EDT, Height, 64.6, kg, 08/09/23 13:06:00 EDT, Dry Weight Start Date: 10/27/23 Status: Ordered Quantity: 90.0 Unit: tablet Repeat number: 1 fluticasone 50 mcg/inh nasal spray 1 sprays = 50 mcg, Nares, Both, 2 times a day, # 16 Gm, 0 Refills, Maintenance, 05/05/24 4:37:00 PM EST, [place], [facility] #17510, Partial fill upon patient request if the [...] 4:19:00 PM EDT, Route to Pharmacy Electronically, [facility] #[id number] Tablet, Partial fill upon patient request if [...] 7:49:00 AM EST, Route to Pharmacy Electronically, [facility] #86349, 168, cm, 04/04/24 11:17:00 EST, Height, 64.6, kg, 08/09/23 13:06:00 EDT, Dry Weight Start Date: 04/13/24 Status: Ordered Quantity: 100.0 Unit: capsule Repeat number: 2 traMADol 50 mg oral tablet 1 tablet, By Mouth, Daily, PRN NEEDED FOR MODERATE PAIN, # 30 tablet, 0 Refills, Maintenance, 04/11/24 7:42:00 PM EST, [facility] #[id number], 168, cm, 04/04/24 11:17:00 EST, Height, 64.6, kg, 08/09/23 13:06:00 EDT, Dry Weight Start Date: 04/11/24 Status: Ordered Quantity: 30.0 Unit: tablet Repeat number: 1 valsartan 320 mg oral tablet 1 tablet = 320 mg, By Mouth, Daily, # 90 tablet, 0 Refills, Maintenance, 04/24/24 2:35:00 PM EST, [facility] #[id number], 168, cm, 04/24/24 14:27:00 EST, Height, 70, kg, 04/24/24 14:23:00 EST, Dry Weight Start Date: 04/24/24 Status: Ordered Quantity: 90.0 Unit: tablet Repeat number: 1 Vitamin D 98701 iu oral capsule 50,000 International_Units, By Mouth, [...] 0 Refills, Maintenance, 04/24/24 2:52:00 PM EST[facility], 168, cm, 04/24/24 14:27:00 EST, [...] Date Device Type Site Sigmoidoscopy Flexible Davis PERERAZahraa 08/09/23 Unknow n Colon Device Identifier Serial Number Lot or Batch Number Manufacturing Date Expiration Date Distinct Identification Code MRI Safety Implantable Status Assigning Authority Unknown Unknown [id number] Unknown 11/10/27 Unknown Unknown Active Unk nown Procedure Provider Procedure Date Device Type Site Sigmoidoscopy Flexible Davis PERERAZahraa 08/09/23 Unknow n Colon Device Identifier Serial Number Lot or Batch Number Manufacturing Date Expiration Date Distinct Identification Code MRI Safety Implantable Status Assigning Authority Unknown Unknown [id number] Unknown 03/11/28 Unknown Unknown Active Un known Procedure Provider Procedure Date Device Type Site Sigmoidoscopy Flexible Davis PERERAZahraa 08/09/23 Unknow n Colon Device Identifier Serial Number Lot or Batch Number Manufacturing Date Expiration Date Distinct Identification Code MRI Safety Implantable Status Assigning Authority Unknown Unknown [id number] Unknown 12/11/27 Unknown Unknown Active Unk nown Patient Care team information Care Team Personnel Name: Danitza Monte RN Position: S RN Member Role: Primary Care Nurse Name: Piedad Covarrubias RN Position: S RN Member Role: Primary Care Nurse Name: Margarito Dahl RN Position: S RN Member Role: Primary Care Nurse Name: Jackson Taylor MD Position: [facility] Physician - Primary Care Member Role: PCP Address: [address] [place] [address]- Telecom: Name: Jackson Bland MD Position: [facility] Renal MD Member Role: Lifetime Consulting Physician Address: [address] [place], [place] [address] [place] [address]- Telecom: Name: Mckayla Haro RN Position: S [...] Care Nurse Care Team Related Persons Name: JANIYA SOLANO Insurance Providers Guarantor name: SRINIVASA SOLANO Health Plan Information #: 1 Payer: MEDICARE PART B OUTPT Member Number: NA Policy Number: NA Group Number: NA Health Plan Information #: 2 Payer: [facility] Member Number: NA Policy Number: NA Group Number: NA
--- OUTSIDE RECORDS SUMMARY | 2024-06-06 17:23 | XMS_ITS | Continuity of Care Document ---
Author Organization [facility] Address [address] [place] [address]- Care Team Providers Care Funeral Home Attendant Name Role Phone Jackson Taylor MD Primary Care Physician En[facility] [place]s): 05/05/24 - 06/04/24 [facility] [address] [place] [address]- Attending Physician: Efraín Casiano Admitting Physician: Efraín Casiano Referring Physician: Efraín Casiano Encounter Type: Triage Allergies, Adverse Reactions, Alerts [...] vaccine, inactivated 4 01/13/10 Gi myron SARS-CoV-2(COVID-19)mRNA-LNP vac([id number]) 01/07/24 Recorded SARS-CoV-2(COVID-19)mRNA-LNP vac(wry693) 02/28/23 Recorded pneumococcal 20-valent conjugate vaccine 01/13/23 Recorded tetanus/diphtheria/pertussis, acel(Tdap) 01/13/23 Recorded tetanus/diphtheria/pertussis, acel(Tdap) 5 08/04/10 Given [id number] bivalent booster vax 01/05/22 Recorded SARS-CoV-2 (COVID-19) mRNA-1273 vaccine 06/13/20 R ecorded SARS-CoV-2 (COVID-19) mRNA-1273 vaccine 05/08/20 R ecorded pneumococcal 13-valent vaccine 02/16/17 Recorded pneumococcal 13-valent vaccine 02/17/15 Recorded hepatitis B adult vaccine 6 02/12/12 Given hepatitis B adult vaccine 01/13/12 Given pneumococcal 23-valent vaccine 7 08/04/10 Given 1Result Comment: [facility] [id number] 2Admin Note: VIS 10-21 3Admin Note: VIS GIVEN 11/04/2010 4Admin Note: VIS GIVEN 11/19/09 [facility] 5Admin Note: vis given 6Admin [...] Refills, Maintenance, 05/28/24 2:20:00 PM EST, Tablet, [facility] #[id number], Partial fill upon patient request if the prescription is for a schedule II opioid drug., 168, cm, 05/11/24 9:31:00 EST, Height, 69.9, kg, 05/11/24 9:27:00 EST, Dry Weight Start Date: 05/28/24 Status: Ordered Quantity: 90.0 Unit: tablet Repeat number: 2 atorvastatin 40 mg oral tablet 1 tablet, By Mouth, Daily, THIS. REPLACES SIMVASTATIN, # 90 tablet, 3 Refills, Maintenance, 10/21/23 3:30:00 PM EDT, [facility] #[id number], 168, cm, 09/14/23 10:27:00 EDT, Height, 64.6, [...] 03/21/24 12:02:00 PM EST, Route to PharmacyElectronically, [facility] #[id number] Tablet, Partial fill upon patient request if the prescription is for a schedule II opioid drug., 168, cm, 01/25/24 13:29:00 EDT, Height, 64.6, kg, 08/08/2412:06:00 EDT, Dry Weight Start Date: 03/21/24 Status: Ordered Quantity: 240.0 Unit: capsule Repeat number: 4 [place] Saline Mist 0.65% nasal spray 2 sprays, Nares, Both, 4 times a day, # 1 each, 0 Refills, Maintenance, 05/05/24 4:37:00 PM EST, [facility] #[id number], Partial fill upon patient request if the [...] Maintenance, 09/27/23 2:09:00 PM EDT, REC Powder, [facility] #[id number], Partial fill upon patient request if the [...] Refills, Maintenance, 05/05/24 4:38:00 PM EST, Tablet, [facility] #[id number], Partial fill upon patient request if the [...] Refills, Maintenance, 04/16/23 5:42:00 PM EST, Tablet, [facility] #[id number], Partial fill upon patient requestif the prescription [...] 10:54:00 PM EDT, Route to Pharmacy Electronically, [facility] #[id number], 168, cm, 09/14/23 10:27:00 EDT, Height, 64.6, kg, 08/09/23 13:06:00 EDT, Dry Weight Start Date: 10/27/23 Status: Ordered Quantity: 90.0 Unit: tablet Repeat number: 1 fluticasone 50 mcg/inh nasal spray 1 sprays = 50 mcg, Nares, Both, 2 times a day, # 16 Gm, 0 Refills, Maintenance, 05/05/24 4:37:00 PM EST, [place], [facility] #[id number], Partial fill upon patient request if the [...] 4:19:00 PM EDT, Route to Pharmacy Electronically, [facility] #[id number] Tablet, Partial fill upon patient request if [...] 7:49:00 AM EST, Route to Pharmacy Electronically, [facility] #[id number], 168, cm, 04/04/24 11:17:00 EST, Height, 64.6, kg, 08/09/23 13:06:00 EDT, Dry Weight Start Date: 04/13/24 Status: Ordered Quantity: 100.0 Unit: capsule Repeat number: 2 traMADol 50 mg oral tablet 1 tablet, By Mouth, Daily, PRN NEEDED FOR MODERATE PAIN, # 30 tablet, 0 Refills, Maintenance, 05/30/24 9:33:00 PM EST, [facility] #[id number], 168, cm, 05/11/24 9:31:00 EST, Height, 69.9, kg, 05/11/24 9:27:00 EST, Dry Weight Start Date: 05/30/24 Status: Ordered Quantity: 30.0 Unit: tablet Repeat number: 1 valsartan 320 mg oral tablet 1 tablet = 320 mg, By Mouth, Daily, # 90 tablet, 0 Refills, Maintenance, 04/24/24 2:35:00 PM EST, [facility] #[id number], 168, cm, 04/24/24 14:27:00 EST, Height, 70, kg, 04/24/24 14:23:00 EST, Dry Weight Start Date: 04/24/24 Status: Ordered Quantity: 90.0 Unit: tablet Repeat number: 1 Vitamin D 96615 iu oral capsule 50,000 International_Units, By Mouth, [...] 0 Refills, Maintenance, 04/24/24 2:52:00 PM EST, [facility], 168, cm, 04/24/24 14:27:00 EST, [...] Safety Implantable Status Assigning Authority Unknown Unknown [id number] Unknown 11/10/27 Unknown Unknown Active Unk nown Procedure Provider Procedure Date Device Type Site Sigmoidoscopy Flexible Zahraa Cannon MD 08/09/23 Unknow n Colon Device Identifier Serial Number Lot or Batch Number Manufacturing Date Expiration Date Distinct Identification Code MRI Safety Implantable Status Assigning Authority Unknown Unknown [id number] Unknown 03/11/28 Unknown Unknown Active Un known Procedure Provider Procedure Date Device Type Site Sigmoidoscopy Flexible Zahraa Cannon MD 08/09/23 Unknow n Colon Device Identifier Serial Number Lot or Batch Number Manufacturing Date Expiration Date Distinct Identification Code MRI Safety Implantable Status Assigning Authority Unknown Unknown [id number] Unknown 12/11/27 Unknown Unknown Active Unk nown Patient Care team information Care Team Personnel Name: Danitza Monte RN Position: [facility] RN Member Role: Primary Care Nurse Name: Piedad Covarrubias RN Position: [facility] RN Member Role: Primary Care Nurse Name: Margarito Dahl RN Position: S RN Member Role: Primary Care Nurse Name: Jackson Taylor MD Position: [facility] Physician - Primary Care Member Role: PCP Address: [address] [place] [address]- Telecom: Name: Jackson Bland MD Position: [facility] Renal MD Member Role: Lifetime Consulting Physician Address: [address] [place] [address] [address] [facility] [place] [address]- Telecom: Name: Mckayla Haro RN Position: S [...] JANIYA SOLANO Insurance Providers Guarantor name: SRINIVASA DOLLPO Health Plan Information #: 1 Payer: MEDICARE PART B OUTPT Member Number: NA Policy Number: NA Group Number: NA Health Plan Information #: 2 Payer: [facility] Member Number: NA Policy Number: NA Group Number: NA
--- OUTSIDE RECORDS SUMMARY | 2024-06-06 17:24 | XMS_ITS | Continuity of Care Document ---
Author Organization [facility] Address [address] [place] [address]- Care Team Providers Care Latex Dipper Name Role Phone Jackson Taylor MD Primary Care Physician [phone] Encounter [facility] Date(s): 05/11/24 - 05/18/24 [facility] [address] [place], [place] [address] Encounter Diagnosis Hypertension(Discharge Diagnosis) - 05/11/24 Attending Physician: Jackson Taylor MD Encounter Type: Office Visit Allergies, Adverse [...] vaccine, inactivated 4 01/13/10 Gi myron SARS-CoV-2(COVID-19)mRNA-LNP vac(zra129) 01/07/24 Recorded SARS-CoV-2(COVID-19)mRNA-LNP vac(osf713) 02/28/23 Recorded pneumococcal 20-valent conjugate vaccine 01/13/23 Recorded tetanus/diphtheria/pertussis, acel(Tdap) 01/13/23 Recorded tetanus/diphtheria/pertussis, acel(Tdap) 5 08/04/10 Given [id number]-1273 bivalent booster vax 01/05/22 Recorded SARS-CoV-2 (COVID-19) mRNA-1273 vaccine 06/13/20 R ecorded SARS-CoV-2 (COVID-19) mRNA-1273 vaccine 05/08/20 R ecorded pneumococcal 13-valent vaccine 02/16/17 Recorded pneumococcal 13-valent vaccine 02/17/15 Recorded hepatitis B adult vaccine 6 02/12/12 Given hepatitis B adult vaccine 01/13/12 Given pneumococcal 23-valent vaccine 7 08/04/10 Given 1Result Comment: [facility] [id number] 2Admin Note: VIS - 3Admin Note: VIS GIVEN 11/04/2010 4Admin Note: VIS GIVEN 11/19/09 [facility] 5Admin Note: vis given 6Admin Note: [...] 9:45:00 AM EST, Route to Pharmacy Electronically, [facility] #[id number], Partial fill upon patientrequest if the prescription is for a schedule II opioid drug., 168, cm, 05/11/24 9:31:00 EST, Height, 69.9, kg, 05/11/24 9:27:00 EST, Dry Weight Start Date: 05/11/24 Status: Ordered Quantity: 90.0 Unit: tablet Repeat number: 1 atorvastatin 40 mg oral tablet 1 tablet, By Mouth, Daily, THIS. REPLACES SIMVASTATIN, # 90 tablet, 3 Refills, Maintenance, 10/21/23 3:30:00 PM EDT, [facility] #[id number], 168, cm, 09/14/23 10:27:00 EDT, Height, 64.6, [...] 03/21/24 12:02:00 PM EST, Route to PharmacyElectronically, [facility] #[id number] Tablet, Partial fill upon patient request if the prescription is for a schedule II opioid drug., 168, cm, 01/25/24 13:29:00 EDT, Height, 64.6, kg, 08/08/2412:06:00 EDT, Dry Weight Start Date: 03/21/24 Status: Ordered Quantity: 240.0 Unit: capsule Repeat number: 4 [place] Saline Mist 0.65% nasal spray 2 sprays, Nares, Both, 4 times a day, # 1 each, 0 Refills, Maintenance, 05/05/24 4:37:00 PM EST, [facility] #[id number], Partial fill upon patient request if the [...] Maintenance, 09/27/23 2:09:00 PM EDT, REC Powder, [facility] #[id number], Partial fill upon patient request if the [...] Refills, Maintenance, 05/05/24 4:38:00 PM EST, Tablet, [facility] #[id number], Partial fill upon patient request if the [...] Refills, Maintenance, 04/16/23 5:42:00 PM EST, Tablet, [facility] #[id number], Partial fill upon patient requestif the prescription [...] 10:54:00 PM EDT, Route to Pharmacy Electronically, [facility] #[id number], 168, cm, 09/14/23 10:27:00 EDT, Height, 64.6, kg, 08/09/23 13:06:00 EDT, Dry Weight Start Date: 10/27/23 Status: Ordered Quantity: 90.0 Unit: tablet Repeat number: 1 fluticasone 50 mcg/inh nasal spray 1 sprays = 50 mcg, Nares, Both, 2 times a day, # 16 Gm, 0 Refills, Maintenance, 05/05/24 4:37:00 PM EST, [place], [facility] #[id number], Partial fill upon patient request if the [...] 4:19:00 PM EDT, Route to Pharmacy Electronically, [facility] #[id number] Tablet, Partial fill upon patient request if [...] 7:49:00 AM EST, Route to Pharmacy Electronically, [facility] #[id number], 168, cm, 04/04/24 11:17:00 EST, Height, 64.6, kg, 08/09/23 13:06:00 EDT, Dry Weight Start Date: 04/13/24 Status: Ordered Quantity: 100.0 Unit: capsule Repeat number: 2 traMADol 50 mg oral tablet 1 tablet, By Mouth, Daily, PRN NEEDED FOR MODERATE PAIN, # 30 tablet, 0 Refills, Maintenance, 04/11/24 7:42:00 PM EST, [facility] #26593, 168, cm, 04/04/24 11:17:00 EST, Height, 64.6, kg, 08/09/23 13:06:00 EDT, Dry Weight Start Date: 04/11/24 Status: Ordered Quantity: 30.0 Unit: tablet Repeat number: 1 valsartan 320 mg oral tablet 1 tablet = 320 mg, By Mouth, Daily, # 90 tablet, 0 Refills, Maintenance, 04/24/24 2:35:00 PM EST, [facility] #[id number], 168, cm, 04/24/24 14:27:00 EST, Height, 70, kg, 04/24/24 14:23:00 EST, Dry Weight Start Date: 04/24/24 Status: Ordered Quantity: 90.0 Unit: tablet Repeat number: 1 Vitamin D 17742 iu oral capsule 50,000 International_Units, By Mouth, [...] 0 Refills, Maintenance, 04/24/24 2:52:00 PM EST, [facility], 168, cm, 04/24/24 14:27:00 [...] Diagnosis Diagnosis Type Effective Dates Health Status Cl inical Service Informant Hypertension Discharge Diagnosis 05/11/24 Vital Signs Most recent to oldest [Reference Range]: 1 2 Height 168 cm (05/11/24 9:31 AM) 168 cm (05/11/24 9:27 AM) Weight 69.9 kg (05/11/24 9:27 AM) Oxygen Saturation [94-100 %] 97 % (05/11/24 9:31 AM) 99 % (05/11/24 9:27 AM) Pulse Rate [55-90 bpm] 74 bpm (05/11/24 9:31 AM) 71 bpm (05/11/24 9:27 AM) Body Mass Index [18.5-24.99 kg/m2] 24.77 kg/m2 (05/11/24 9:27 AM) Blood Pressure [90-138/55-84 mm Hg] 159/ 85mm Hg *H* (05/11/24 9:31 AM) 170/85mm Hg *H* (05/11/24 9:27 AM) Temperature [96.8-100.4 DegF] 98.2 DegF (05/11/24 9:27 AM) Mode of Delivery (Oxygen) Room air (05/11/24 9:27 AM) Blood pressure sites Arm, left (05/11/24 9:31 AM) Arm, left (05/11/24 9:27 AM) Temperature Route Temporal (05/11/24 9:27 AM) Dry Weight 69.9 kg (05/11/24 9:27 AM) Weight Obtained Via Standing scale (05/11/24 9:27 AM) Social History Social History Type Response Smoking Status Smoker, current stat us unknown; Other: Quit 1994; entered on: 08/31/22 Sex Sex Representation Male (finding) Implantable Device List Procedure Provider Procedure Date Device Type Site Sigmoidoscopy Flexible Davis PERERA Zahraa Jermaine 08/09/23 Unknow n Colon Device Identifier Serial Number Lot or Batch Number Manufacturing Date Expiration Date Distinct Identification Code MRI Safety Implantable Status Assigning Authority Unknown Unknown [id number] Unknown 11/10/27 Unknown Unknown Active Unk nown Procedure Provider Procedure Date Device Type Site Sigmoidoscopy Flexible Zahraa Cannon MD Jermaine 08/09/23 Unknow n Colon Device Identifier Serial Number Lot or Batch Number Manufacturing Date Expiration Date Distinct Identification Code MRI Safety Implantable Status Assigning Authority Unknown Unknown [id number] Unknown 03/11/28 Unknown Unknown Active Un known Procedure Provider Procedure Date Device Type Site Sigmoidoscopy Flexible Davis PERERA Zahraa Jermaine 08/09/23 Unknow n Colon Device Identifier Serial Number Lot or Batch Number Manufacturing Date Expiration Date Distinct Identification Code MRI Safety Implantable Status Assigning Authority Unknown Unknown [id number] Unknown 12/11/27 Unknown Unknown Active Unk nown Patient Care team information Care Team Personnel Name: Danitza Monte RN Position: S RN Member Role: Primary Care Nurse Name: Piedad Covarrubias RN Position: S RN Member Role: Primary Care Nurse Name: Margarito Dahl RN Position: S RN Member Role: Primary Care Nurse Name: Jackson Taylor MD Position: [facility] Physician - Primary Care Member Role: PCP Address: [address] [place] [address]- Telecom: Name: Jackson Bland MD Position: [facility] Renal MD Member Role: Lifetime Consulting Physician Address: [address] [place], [place] [address] [place] [address]- Telecom: Name: Mckayla Haro RN Position: [facility] RN Member Role: Primary Care Nurse Name: Gail De La Cruz RN Position: S RN Member Role: Primary Care Nurse Name: Venecia Polacno RN Position: S RN Member Role: Primary Care Nurse Name: Farrah Jones RN Position: S RN Member Role: Primary Care Nurse Name: Maine Gutierrez RN Position: S RN Member Role: Primary Care Nurse Name: Erik Issa RN Position: S RN Member Role: Primary Care Nurse Care Team Related Persons Name: JANIYA SOLANO Insurance Providers Guarantor name: SRINIVASA SOLANO Health Plan Information #: 2 Payer: [facility] Member Number: [id number] Policy Number: NA Group Number: [id number] Health Plan Information #: 1 Payer: MEDICARE PART B OUTPT Member Number: [id number] Policy Number: NA Group Number: [id number]
== END 2024-06-06 14:27 | disposition home or self-care (01) ==
PROVIDERS: PCP Internal Medicine; Visit Provider Internal Medicine Rheumatology
DX: M19.011 Primary osteoarthritis, right shoulder (principal)
CPT/HCPCS: 99213; G2211

== ENCOUNTER → 2024-06-06 13:55 | Outpatient (BNVA) | payer MEDICARE, OTHER, SELFPAY | PROVIDERS: PCP Internal Medicine; Visit Provider Internal Medicine Rheumatology | DX: M19.011 Primary osteoarthritis, right shoulder (principal) | CPT/HCPCS: 99212 ==

== ENCOUNTER 2024-09-13 08:49 | Outpatient (REF) | payer MEDICARE, OTHER, SELFPAY ==
--- OUTSIDE RECORDS SUMMARY | 2024-09-13 09:10 | XMS_ITS | Clinical Summary ---
Author Organization [facility], Address [address] [place] [address] [place] [address] Phone Care Team Providers Care Telephone Sex Worker Name Role Phone Jackson Taylor MD Primary Care Provider [phone] Allergies Active Allergy Reactions Criticality Noted Date [...] Due Date Last Done Comments Pneumococcal Vaccine: 50+ Years (3 of 3 - PCV20 or PCV21) 02/16/2022 02/16/2017, 02/17/2015, 08/04/2010 Diabetes: Hemoglobin A1C 09/01/2023 Diabetes: Ophthalmology Exam 09/01/2023 Diabetes: Pedal Pulse Checked 09/01/2023 Diabetes: Sensory Foot Exam 09/01/2023 Diabetes: Visual Foot Exam 09/01/2023 Influenza Vaccine (Season Ended) 2024 Hepatitis B Vaccine Aged Out 02/12/2012, 01/13/2012 No longer eligible based on patient's age to complete this topic Insurance Medicare [facility] Care Teams Telephone Sex Worker Relationship Specialty Start Date End Date Jackson Taylor MD [address] [place] [id number] PCP - General Internal Medicine 08/17/23
[2024-09-13 11:09] LABS: Prostate Specific Antigen 6.53 ng/mL (<0.05-4.0)
== END 2024-09-13 08:50 | disposition home or self-care (01) ==
LOC: HO.LAB 08:49
PROVIDERS: PCP Internal Medicine; Visit Provider Urology
DX: N40.1 Benign prostatic hyperplasia with lower urinary tract symptoms (principal); R35.0 Frequency of micturition; Z12.5 Encounter for screening for malignant neoplasm of prostate
CPT/HCPCS: 36415; 84153

== ENCOUNTER 2024-09-19 15:37 | Outpatient (AMB) | payer MEDICARE, OTHER, SELFPAY ==
--- NOTE | 2024-09-19 15:44 | A.OFFVIS_ITS ---
Intake Visit Reasons: 1yr/PSA/PVR Intake Note: Patient is Present for 1Y Follow Up PVR/PSA Urology Medication: Doxazosin Antibiotic Allergies:None Blood Thinners: None PVR 21ML'S TODAY'S PVR:0ML'S Sanding Supervisor Required: No Allergies metoprolol Allergy (Severe, Verified 09/19/24 15:45) Swelling HPI Comments Details: Luiz is a very pleasant male. He is a patient of Dr Olvera. He is seen for the following urologic conditions - lower urinary tract symptoms Twelve month follow-up PVR 0 cc PSA elevation Repeat in six-month Has upcoming secondary procedure for hernias after perforated diverticulitis Lower urinary tract symptoms Says he has effective emptying and good stream Remains on doxazosin 1 mg daily for blood pressure and that assists his prostate PSA remaining in range 01/30 1.8, 01/01 1.9, 10/04 6.5 Review in 12 months Erectile dysfunction - not an active issue [facility] Medical History Diabetes mellitus, type II BPH (benign prostatic hyperplasia) Erectile dysfunction Enlarged prostate with lower urinary tract symptoms (LUTS) Nocturia Surgical History Hx of colectomy Social History Household Members: Spouse Housing: Condominium Alcohol intake: current Comment: OCC Patient Tobacco Use Status: Former Tobacco user Years Smoked: 15 Review of Systems Const Denies chills and Denies fever(s) Card Reports no additional complaints and Denies syncope Resp Denies cough GI Denies abdominal pain and Denies heartburn Reports as per HPI and Denies change in libido Neuro Denies syncope Psych Denies change in libido Endo Denies change in libido Physical Exam Const General: cooperative, healthy appearing, comfortable and no acute distress Orientation/consciousness: patient oriented x3 HEENT Face and sinus: Yes normal facial exam Mouth: moist mucous membranes Neck Neck: Yes normal visual inspection, Yes full ROM and Yes trachea midline Chest Chest palpation & inspection: normal inspection of the chest Resp Effort & Inspection: normal respiratory effort, able to speak in complete sentences and no respiratory distress GI Inspection: Yes normal to inspection Rectal Exam - Male: Yes normal sphincter tone and Yes prostate normal Male General Exam: Yes normal external exam Penis: normal penis and circumcised Meatus: meatus normal Scrotum: scrotum normal Testes: Testes normal Back/Spine/Pelvis Cervical Spine: normal cervical lordosis Thoracic/Lumbar Spine: thoracic and lumbar spine normal to inspection Skin General skin exam: no rashes or lesions noted Neuro General: patient oriented x3, gait normal, tone normal and moves all extremities Extrem General: Yes normal to inspection and Yes capillary refill normal Office Procedures Post Void Residual Post Residual Void Post Void Residual (PVR): 0 43474-Ovkc Void Residual by ultrasound Assessment & Plan Assessment & Plan (1) Elevated PSA: Code(s): R97.20 - Elevated prostate specific antigen [PSA] Category: Medical Plan Six-month follow-up PSA Orders: Orders PSA,Total (Free>4and<10) 6 Months R97.20 - Elevated prostate specific antigen [PSA] Patient Instructions: This note is constructed using voice recognition software. While every effort has been made to ensure accuracy pressure testing technician errors may have been included. Imaging studies, laboratory and physical exam results were discussed and reviewed in detail. No major barriers to patient understanding were identified. An opportunity to ask questions regarding the treatment plan was provided. All questions were answered. The patient expressed understanding and agreement with the above treatment plan. The patient is aware they should contact our office by phone for worsening of their current condition or the appearance of new urologic symptoms. Compliance is encouraged with any medications and followup testing that is ordered. It is a privilege to participate in the urologic care of your patient. If you have any questions or concerns regarding treatment for the above conditions, or other urologic issues, please do not hesitate to contact me. The office telephone contact is [phone]. Sincerely, Dr Harmeet Storey MD, [facility] - [facility] Compassionate Specialist Care for the Genitourinary System Coding Level of Care Code Est Pt Level 4 (08223) Complex EM visit Add On G2211 Diagnoses Elevated PSA R97.20 CPT Codes Post Residual Void - PVR CPT Code: 85278-Ggco Void Residual by ultrasound ([id number])
--- OUTSIDE RECORDS SUMMARY | 2024-09-19 18:41 | XMS_ITS | Clinical Summary ---
Author Organization [facility], Address [address] [place] [address] [place] [address] Phone Care Team Providers Care Entry Level Software Developer Name Role Phone Jackson Taylor MD Primary Care Provider [phone] Allergies Active Allergy Reactions Criticality Noted Date [...] age to complete this topic Insurance Medicare Count Includes [facility] Care Teams Entry Level Software Developer Relationship Specialty Start Date End Date Jackson Taylor MD [address] [place] [id number] PCP - General Internal Medicine 08/17/23
== END 2024-09-19 16:34 | disposition home or self-care (01) ==
LOC: HO.HUSH 15:38
PROVIDERS: PCP Internal Medicine; Visit Provider Urology
DX: R97.20 Elevated prostate specific antigen [PSA] (principal)
CPT/HCPCS: 99214; G2211

== ENCOUNTER → 2024-09-19 15:37 | Outpatient (BNVA) | payer MEDICARE, OTHER, SELFPAY | PROVIDERS: PCP Internal Medicine; Visit Provider Urology | DX: R97.20 Elevated prostate specific antigen [PSA] (principal) | CPT/HCPCS: 51798; 99212 ==

== ENCOUNTER 2024-11-28 12:31 | Outpatient (AMB) | payer MEDICARE, OTHER, SELFPAY ==
--- NOTE | 2024-11-28 12:36 | MHC.OFFVIS ---
Vital Signs 11/28/24 12:37 Height 5 ft 6 in Weight 158 lb 8 oz BMI 25.6 BP 100/50 L Blood Pressure Location Lt brachial Position Sitting Pulse 77 Pulse Source Pulse Oximeter Pulse Oximetry (%) 97 Oxygen Delivery Method Room Air Intake Visit Reasons: 6 months Intake Note: Patient presents for Arthritis follow up. Accompanied by: Self / Same As Patient Allergies metoprolol Allergy (Severe, Verified 11/28/24 12:36) Swelling HPI HPI 6 months: Details: He is doing well. He continues to do exercises at home. When he has pain at night when he is sleeping on his right shoulder he turns, which resolves his pain. He takes Tylenol PRN joint pain with benefit. He is planning to have to abdominal hernias repaired next Wednesday. [facility] Medical History Diabetes mellitus, type II BPH (benign prostatic hyperplasia) Erectile dysfunction Enlarged prostate with lower urinary tract symptoms (LUTS) Nocturia Surgical History Hx of colectomy Social History Household Members: [facility] Alcohol intake: current Comment: OCC Patient Tobacco Use Status: Former Tobacco user Years Smoked: 15 Physical Exam Vital Signs: Last Vital Signs Pulse 77 11/28/24 12:37 BP 100/50 L 11/28/24 12:37 Pulse Ox 97 11/28/24 12:37 Oxygen Delivery Method Room Air 11/28/24 12:37 BMI result Body Mass Index 25.6 Const Other: General: Comfortable Skin: No lesions seen MSK: No tenderness of joints. No subacromial tenderness. Good range of motion of his shoulder. Assessment & Plan Assessment & Plan (1) Osteoarthritis of right glenohumeral joint: Comment: Intermittent pain, self-limited. Controlled with home exercise program Code(s): M19.011 - Primary osteoarthritis, right shoulder Category: Medical Plan: He will call office if pain returns for cortisone injection Continue exercises daily for shoulder strengthening Return to clinic in 12 months or sooner if needed Coding Level of Care Code Est Pt Level 3 (74917) Complex EM visit Add On G2211 Diagnoses Osteoarthritis of right glenohumeral joint M19.011
[2024-11-28 12:37] VITALS: BP 100/50; PULSE 77; O2SAT 97; BMI 25.6
--- OUTSIDE RECORDS SUMMARY | 2024-11-28 13:45 | XMS_ITS | Clinical Summary ---
Author Organization [facility], Address [address] [place] [address] [place] [address] Phone Care Team Providers Care Psychological Operations Officer Name Role Phone Jackson Taylor MD Primary Care Provider [phone] Allergies Active Allergy Reactions Criticality Noted Date [...] Visual Foot Exam 09/01/2023 Influenza Vaccine (#1) 2024 Hepatitis B Vaccine Aged Out 02/12/2012, 01/13/2012 No longer eligible based on patient's age to complete this topic Insurance Medicare [facility] Care Teams Psychological Operations Officer Relationship Specialty Start Date End Date Jackson Taylor MD [address] [place] [id number] PCP - General Internal Medicine 08/17/23
--- OUTSIDE RECORDS SUMMARY | 2024-11-28 13:45 | XMS_ITS | Clinical Summary ---
Author Organization [facility] Address [address] [place] [address] Phone Care Team Providers Care Furnace Filler Name Role Phone Arabella Olvera MD Primary Care Provider [phone] Allergies Active Allergy Reactions Criticality Noted Date Comments Metoprolol Tartrate 01/30/2021 Medications valsartan-hydro CHLOROthiazide (DIOVAN-HCT) 320-25 mg per tablet Take 1 tablet by mouth daily. Active amLODIPine (NORVASC) 10 MG tablet Take 10 mg by mouth daily. Active simvastatin (ZOCOR) 80 MG tablet Take 80 mg by mouth nightly at bedtime. Active traMADoL (ULTRAM) 50 mg tablet Take 50 mg by mouth daily as needed for pain (specific location in comments). Active cholecalciferol (VITAMIN D3) 2,000 unit tablet Take 1,000 Units by mouth daily. Active acetaminophen (TYLENOL) 650 MG CR tablet Take 650 mg by mouth every 8 (eight) hours as needed for pain (specific location in comments). Active aspirin 81 MG EC tablet Take 81 mg by mouth daily. Active doxazosin (CARDURA) 1 MG tablet Take 1 mg by mouth nightly at bedtime. Active diclofenac sodium (VOLTAREN) 1 % Gel Apply topically 4 (four) times a day. Active atorvastatin (LIPITOR) 40 MG tablet Take 1 tablet by mouth. 4 Active zolpidem (AMBIEN) 5 MG tablet Take 1 tablet by mouth. 5 Active diphenoxylate-a tropine (LOMOTIL) 2.5-0.025 mg per tablet TAKE 2 TABLETS BY MOUTH FOUR TIMES DAILY NEEDED FOR LOOSE STOOLS TAKE 30 MINUTES BEFORE MEALS AND AT BEDTIME Active loperamide (IMODIUM A-D) 2 mg tablet Take 2 mg by mouth 4 (four) times a day as needed for diarrhea. Active Active Problems No known active problems Family History Medical History Relation Comments Lupus Neg Hx Psoriasis Neg Hx Rheumatoid arthritis Neg Hx Social History Tobacco Use Types Packs/Day Years Used Date Smoking Tobacco: Former Cigarettes Q uit: 1994 Smokeless Tobacco: Never Tobacco Cessation:Counseling Given: Not Answered Education Answer Date Recorded Are you interested in more education? Not on samuel e 08/08/2022 Are you concerned about learning? Not on file 08/08/2022 No 08/08/2022 No 08/08/2022 Digital Access Answer Date Recorded No 09/06/2022 No 09/06/2022 Reliable internet access at home? Not on file 09/06/2022 Device with a working camera? Not on file Sex and Gender Information Value Date Recorded Sex Assigned at Not on file Legal Sex Male 3:07 PM EDT Gender Identity Not on file Sexual Orientation Not on file Last Filed Vital Signs Vital Sign Reading Time Taken Comments Blood Pressure 133/55 08/14/2024 1:21 PM EDT Pulse 71 08/14/2024 1:21 PM EDT Temperature 37 C (98.6 F) 03/19/2021 5:11 PM EST Respiratory Rate - - Oxygen Saturation 98% 03/19/2021 5:11 PM EST Inhaled Oxygen Concentration - - Weight 70.5 kg (155 lb 6.4 oz) 08/14/2024 1:14 P M EDT Height 167.6 cm (5' 6 ) 08/14/2024 1:14 PM EDT Body Mass Index 25.08 08/14/2024 1:14 PM EDT Plan of Treatment Health Maintenance Due Date Last Done Comments Adult Td,Tdap Booster 1945 CREATININE LEVEL 1945 LIPID PANEL 1945 POTASSIUM LEVEL 1945 DEPRESSION SCREENING 1957 HEPATITIS C SCREENING 10/20/1963 ZOSTER VACCINES (1 of 2) 10/20/1995 PNEUMOCOCCAL VACCINES (50+ y ears) (2 of 2 - PPSV23) 02/18/2016 02/17/2015 RSV VACCINE (1 - 1-dose 75+ series) 2020 COVID-19 VACCINE (2 - 2023-2 5 season) 2023 06/13/2020 SMOKING Hx and SMOKELESS TOB ACCO SCREENING 08/14/2025 08/14/2024 HEPATITIS A VACCINES Aged Out No long er eligible based on patient's age to complete this topic HIB VACCINES Aged Out No longer eligi ble based on patient's age to complete this topic MENINGOCOCCAL VACCINES (ACWY) Aged Out No longer eligible based on patient's age to complete this topic MENINGOCOCCAL VACCINES (B) Aged Out N o longer eligible based on patient's age to complete this topic Medical Devices Not on file Insurance MEDICARE PART A & B [facility] MEDICARE SUPPLEMENT MEDICARE PART A & B [employer] MEDICARE SUPPLEMENT MEDICARE PART A & B [employer] MEDICARE SUPPLEMENT MEDICARE PART A & B [facility] MEDICARE SUPPLEMENT MEDICARE PART A & B [facility] MEDICARE SUPPLEMENT MEDICARE PART A & B [facility] MEDICARE SUPPLEMENT MEDICARE PART A & B [facility] MEDICARE SUPPLEMENT MEDICARE PART A & B Member Subscriber Plan / Payer (Ef fective 2012-Present) Name:Luiz Lucio Member ID:[id number] Relation to Subscriber:Self Name:Luiz Lucio Subscriber ID:[id number] Payer ID:[id number] Group ID:Not on file Type:Medicare Address: [employer] [address] [place] [id number] [facility] EXTENSION MEDICARE SUPPLEMENT [place]O [place]ES [phone] MEDICARE PART A & B Member Subscriber Plan / Payer ( fective 2012-Present) Name:Luiz Lucio Member ID:[id number] Relation to Subscriber:Self Name:Luiz Lucio Subscriber ID:[id number] Payer ID:[id number] Group ID:Not on file Type:Medicare Address: [employer] [address] [place] [id number] [place] [address] MEDICARE SUPPLEMENT Care Teams Furnace Filler Relationship Specialty Start Date End Date Arabella Olvera MD [address] [place] [address] PCP - General Internal Medicine 01/07/21 Additional Source Comments The information contained in this document represents components of the legal health record. It is not the complete legal health record.[facility]
== END 2024-11-28 13:07 | disposition home or self-care (01) ==
LOC: HO.RHES 12:31
PROVIDERS: PCP Internal Medicine; Visit Provider Internal Medicine Rheumatology
DX: M19.011 Primary osteoarthritis, right shoulder (principal)
CPT/HCPCS: 99213; G2211

== ENCOUNTER → 2024-11-28 12:31 | Outpatient (BNVA) | payer MEDICARE, OTHER, SELFPAY | PROVIDERS: PCP Internal Medicine; Visit Provider Internal Medicine Rheumatology | DX: M19.011 Primary osteoarthritis, right shoulder (principal) | CPT/HCPCS: 99212 ==

== ENCOUNTER 2025-01-31 08:49 | Outpatient (AMB) | payer MEDICARE, OTHER, SELFPAY ==
--- NOTE | 2025-01-31 08:51 | A.OFFVIS_ITS ---
Vital Signs 01/31/25 08:59 Height 5 ft 6 in Weight 150 lb 5.684 oz BMI 24.3 BP 120/76 Blood Pressure Location Lt brachial Position Sitting Pulse 73 Pulse Source Pulse Oximeter Pulse Oximetry (%) 98 Oxygen Delivery Method Room Air Intake Visit Reasons: RT shoulder cortisone injection Intake Note: Patient presents for Arthritis follow up./ right shoulde r injection. Accompanied by: Self / Same As Patient Allergies metoprolol Allergy (Severe, Verified 11/28/24 12:36) Swelling HPI HPI RT shoulder cortisone injection: Details: He has right shoulder pain progressively getting worse in the last couple of weeks. He had hernia surgery in November and continues to have abdominal pain. Surgical wound has healed. Denies any infection. He will be following up with his surgeon tomorrow. He was advised not to do any lifting after surgery. He has not been able to exercise like he used to prior to surgery. [facility] Medical History (Updated 01/31/25 @ 09:32 by Dixon Ingram MD) Diabetes mellitus, type II BPH (benign prostatic hyperplasia) Erectile dysfunction Enlarged prostate with lower urinary tract symptoms (LUTS) Nocturia Surgical History (Updated 01/31/25 @ 09:01 by Saira Terrazas CMA) S/P hernia surgery Hx of colectomy Social History Household Members: Spouse Housing: Condominium Alcohol intake: current Comment: [facility] [address] Patient Tobacco Use Status: Former Tobacco user Years Smoked: 15 Physical Exam Vital Signs: Last Vital Signs Pulse 73 01/31/25 08:59 BP 120/76 01/31/25 08:59 Pulse Ox 98 01/31/25 08:59 Oxygen Delivery Method Room Air 01/31/25 08:59 BMI result Body Mass Index 24.3 Const Other: General: Comfortable Skin: No lesions seen MSK: Tender right anterior shoulder. Right shoulder pain with external rotation and abduction. Left shoulder range of motion is normal. Office Procedures AMB Joint Injection/Aspiration Joint Injection/Aspiration Details: Right shoulder joint Prep: site was prepped using aseptic technique Injected: 40 mg of, Kenalog, with 1 mL of and 1% plain lidocaine Procedure: Informed verbal consent was obtained. The patient tolerated the procedure well. Postprocedure protocol was discussed with patient. Coding 20269 - Large joint Procedure code (CPT) selection complete Office Meds lidocaine (PF) 10 mg/mL (1 %) injection solution Performing Provider: Dixon Ingram MD Performing Location: [facility] Administered by: Elodia Mercado RN on 01/31/25 15:57 Dose Route Admin Location Dispensed Lot Number Expiration Date [place] Filtration Plant Operator 1 mL Infiltration 2 mL [id number] 09/09/26 01525-425-93 [facility] Total Dispensed Waste 2 mL 50 % Kenalog 40 mg/mL suspension for injection Performing Provider: Dixon Ingram MD Performing Location: [facility] Administered by: Elodia Mercado RN on 01/31/25 15:57 Dose Route Admin Location Dispensed Lot Number Expiration Date [facility] Filtration Plant Operator 40 mg intra-articular 1 mL [id number] 10/09/26 [address]-0 [employer] Total Dispensed Waste 1 mL 0 % Assessment & Plan Assessment & Plan (1) Osteoarthritis of right glenohumeral joint: Comment: Flare in setting of not being able to do home exercise program due to hernia surgery. Code(s): M19.011 - Primary osteoarthritis, right shoulder Category: Medical Plan: Patient received right shoulder cortisone injection Return to clinic 1 year or sooner if needed Orders: Orders AMB Joint Injection/Aspiration Today M19.019 - Primary osteoarthritis, unspecified shoulder Coding Level of Care Code Est Pt Level 3 (04235) Complex EM visit Add On G2211 Diagnoses Osteoarthritis of right glenohumeral joint M19.011 CPT Codes Coding - Large joint: 05220 - Large joint ([id number])
[2025-01-31 08:59] VITALS: BP 120/76; PULSE 73; O2SAT 98; BMI 24.3
--- OUTSIDE RECORDS SUMMARY | 2025-01-31 09:31 | XMS_ITS | Clinical Summary ---
Author Organization [facility], Address [address] [place] [address] [place] [address] Phone Care Team Providers Care Yellow Pages Space Salesperson Name Role Phone Jackson Taylor MD Primary Care Provider [phone] Allergies Active Allergy Reactions Criticality Noted Date [...] age to complete this topic Insurance Medicare [facility] Care Teams Yellow Pages Space Salesperson Relationship Specialty Start Date End Date Jackson Taylor MD [address] [place] [address] PCP - General Internal Medicine 08/17/23
--- OUTSIDE RECORDS SUMMARY | 2025-01-31 09:31 | XMS_ITS | Clinical Summary ---
Author Organization [facility] Address [address] [place] [address] Phone Care Team Providers Care Cement And Concrete Plant Worker Name Role Phone Arabella Olvera MD Primary Care Provider [phone] Allergies Active Allergy Reactions Criticality Noted Date [...] (1 of 2) 10/20/1995 PNEUMOCOCCAL VACCINES (50+ years) (2 of 2 - PPSV23) 02/18/2016 02/17/2015 RSV VACCINE (1 - 1-dose 75+ series) 2020 INFLUENZA VACCINE (#1) 2024 5, 02/25/2014 COVID-19 VACCINE (2 2024-2 6 season) 2024 06/13/2020 SMOKING Hx and SMOKELESS TOBACCO SCREENING 08/14/2025 08/14/2024 HEPATITIS A VACCINES Aged [...] file Insurance MEDICARE PART A & B [facility] EXTENSION MEDICARE SUPPLEMENT MEDICARE PART A & B [employer] MEDICARE SUPPLEMENT [place] [id number] MEDICARE PART A & B [employer] MEDICARE SUPPLEMENT MEDICARE PART A & B [facility] MEDICARE SUPPLEMENT MEDICARE PART A & B [employer] MEDICARE SUPPLEMENT MEDICARE PART A & B [employer] EXTENS[employer] MEDICARE SUPPLEMENT MEDICARE PART A & B [facility] MEDICARE SUPPLEMENT MEDICARE PART A & B [employer] MEDICARE SUPPLEMENT MEDICARE PART A & B MEDICARE SUPPLEMENT Care Teams Cement And Concrete Plant Worker Relationship Specialty Start Date End Date Arabella Olvera MD [address] [place] [address] PCP - General Internal Medicine 01/07/21 Additional Source Comments The information contained in this document represents components of the legal health record. It is not the complete legal health record.[facility]
== END 2025-01-31 09:32 | disposition home or self-care (01) ==
LOC: HO.RHES 08:50
PROVIDERS: PCP Internal Medicine; Visit Provider Internal Medicine Rheumatology
DX: M19.011 Primary osteoarthritis, right shoulder (principal)
CPT/HCPCS: 20610; 99213

== ENCOUNTER → 2025-01-31 08:49 | Outpatient (BNVA) | payer MEDICARE, OTHER, SELFPAY | PROVIDERS: PCP Internal Medicine; Visit Provider Internal Medicine Rheumatology | DX: M19.011 Primary osteoarthritis, right shoulder (principal) | CPT/HCPCS: 20610; 99212; J2003; J3301 ==

== ENCOUNTER 2025-03-14 08:17 | Outpatient (REF) | payer MEDICARE, OTHER, SELFPAY ==
--- OUTSIDE RECORDS SUMMARY | 2025-03-14 08:27 | XMS_ITS | Clinical Summary ---
Author Organization [facility], Address [address] [place] [address] [place] [address] Phone Care Team Providers Care Intake Counselor Name Role Phone Jackson Taylor MD Primary Care Provider [phone] Allergies Active Allergy Reactions Criticality Noted Date [...] age to complete this topic Insurance Medicare [facility] Care Teams Intake Counselor Relationship Specialty Start Date End Date Jackson Taylor MD [address] [place] [address] PCP - General Internal Medicine 08/17/23
--- OUTSIDE RECORDS SUMMARY | 2025-03-14 08:27 | XMS_ITS | Clinical Summary ---
Author Organization [facility] Address [address] [place] [address] Phone Care Team Providers Care Candy Dipper Hand Name Role Phone Arabella Olvera MD Primary Care Provider [phone] Allergies Active Allergy Reactions Criticality Noted Date [...] VACCINES (50+ years) (2 of 2 - PCV20 or PCV21) 02/18/2016 02/17/2015 RSV VACCINE (1 - 1-dose [...] file Insurance MEDICARE PART A & B [facility] EXTENSION MEDICARE SUPPLEMENT MEDICARE PART A & B [employer] MEDICARE SUPPLEMENT [place] [id number] MEDICARE PART A & B [facility] MEDICARE SUPPLEMENT MEDICARE PART A & B [facility] MEDICARE SUPPLEMENT MEDICARE PART A & B [employer] MEDICARE SUPPLEMENT [place] [phone] MEDICARE PART A & B [email or web address] EXTENSION MEDICARE SUPPLEMENT MEDICARE PART A & B [facility] MEDICARE SUPPLEMENT MEDICARE PART A & B [employer] MEDICARE SUPPLEMENT MEDICARE PART A & B MEDICARE SUPPLEMENT Care Teams Candy Dipper Hand Relationship Specialty Start Date End Date Arabella Olvera MD [address] [place] [address] PCP - General Internal Medicine 01/07/21 Additional Source Comments The information contained in this document represents components of the legal health record. It is not the complete legal health record.[facility]
[2025-03-14 14:24] LABS: PSA,Total (Free>4and<10) 15.15 ng/mL (0.00-4.00)
== END 2025-03-14 08:18 | disposition home or self-care (01) ==
LOC: HO.HKASLDS 08:17
PROVIDERS: PCP Internal Medicine; Visit Provider Urology
DX: R97.20 Elevated prostate specific antigen [PSA] (principal); Z12.5 Encounter for screening for malignant neoplasm of prostate
CPT/HCPCS: 36415; 84153

== ENCOUNTER 2025-03-21 15:23 | Outpatient (AMB) | payer MEDICARE, OTHER, SELFPAY ==
--- NOTE | 2025-03-21 15:36 | A.OFFVIS_ITS ---
Intake Visit Reasons: 6M/PSA(set) Intake Note: Reason for Visit: PSA Follow Up Urology Meds: Doxazosin Blood Thinners: Aspirin Labs: PSA: 15.15 (03/14/2025) Last PSA: 6.53 (09/13/2024) Imaging: None Last PVR: 0ml Legal Support Manager Required: No Accompanied by: Self / Same As Patient Allergies metoprolol Allergy (Severe, Verified 03/21/25 15:41) Swelling HPI Comments Details: Luiz is a very pleasant male. He is a patient of Dr Olvera. He is seen for the following urologic conditions - lower urinary tract symptoms PSA continuing to climb Recommend prostate biopsy Has upcoming secondary procedure for hernias after perforated diverticulitis Lower urinary tract symptoms Says he has effective emptying and good stream Remains on doxazosin 1 mg daily for blood pressure and that assists his prostate PSA remaining in range 01/30 1.8, 01/01 1.9, 10/04 6.5, 04/05 15 Review in 12 months Erectile dysfunction - not an active issue [facility] Medical History Diabetes mellitus, type II BPH (benign prostatic hyperplasia) Erectile dysfunction Enlarged prostate with lower urinary tract symptoms (LUTS) Nocturia Surgical History S/P hernia surgery Hx of colectomy Social History Household Members: Spouse Housing: Condominium Alcohol intake: current Comment: OCC Patient Tobacco Use Status: Former Tobacco user Years Smoked: 15 Review of Systems Const Denies chills and Denies fever(s) Card Reports no additional complaints and Denies syncope Resp Denies cough GI Denies abdominal pain and Denies heartburn Reports as per HPI and Denies change in libido Neuro Denies syncope Psych Denies change in libido Endo Denies change in libido Physical Exam Const General: cooperative, healthy appearing, comfortable and no acute distress Orientation/consciousness: patient oriented x3 HEENT Face and sinus: Yes normal facial exam Mouth: moist mucous membranes Neck Neck: Yes normal visual inspection, Yes full ROM and Yes trachea midline Chest Chest palpation & inspection: normal inspection of the chest Resp Effort & Inspection: normal respiratory effort, able to speak in complete sentences and no respiratory distress GI Inspection: Yes normal to inspection Back/Spine/Pelvis Cervical Spine: normal cervical lordosis Thoracic/Lumbar Spine: thoracic and lumbar spine normal to inspection Skin General skin exam: no rashes or lesions noted Neuro General: patient oriented x3, gait normal, tone normal and moves all extremities Extrem General: Yes normal to inspection and Yes capillary refill normal Assessment & Plan Assessment & Plan (1) Elevated PSA: Code(s): R97.20 - Elevated prostate specific antigen [PSA] Category: Medical (2) BPH (benign prostatic hyperplasia): Code(s): N40.0 - Benign prostatic hyperplasia without lower urinary tract symptoms Category: Medical Qualifiers: Lower urinary tract symptom detail: urinary frequency Lower urinary tract symptom presence: symptoms present Qualified Code(s): N40.1 - Benign prostatic hyperplasia with lower urinary tract symptoms; R35.0 - Frequency of micturition Plan Elevated PSA Prostate biopsy Risks and benefits regarding trans rectal ultrasound with prostate biopsy were discussed. Options of continued surveillance, no treatment and biopsy were offered. The risks include but are not limited to, urinary tract infection, sepsis, difficulty urinating, bleeding into the rectum or bladder that requires intervention and transfusion,and failure to diagnose prostate cancer. The patient understands the options and the risks involved. They wish to proceed. Printed information was provided to ensure he remains off a nticoagulation for the appropriate length of time. He may require cardiology or PCP clearance. An antibiotic will be administered prior to, and following the procedure Medications: New levofloxacin take 1 tablet day before procedure, 1 tablet day of procedure and 1 tablet day after procedure 500 mg PO DAILY 3 tabs 0RF 3 days R97.20 - Elevated prostate specific antigen [PSA] dutasteride 0.5 mg PO DAILY 90 caps 1RF 90 days R97.20 - Elevated prostate specific antigen [PSA] Patient Instructions: This note is constructed using voice recognition software. While every effort has been made to ensure accuracy pulpwood contractor errors may have been included. Imaging studies, laboratory and physical exam results were discussed and reviewed in detail. No major barriers to patient understanding were identified. An opportunity to ask questions regarding the treatment plan was provided. All questions were answered. The patient expressed understanding and agreement with the above treatment plan. The patient is aware they should contact our office by phone for worsening of their current condition or the appearance of new urologic symptoms. Compliance is encouraged with any medications and followup testing that is ordered. It is a privilege to participate in the urologic care of your patient. If you have any questions or concerns regarding treatment for the above conditions, or other urologic issues, please do not hesitate to contact me. The office telephone contact is [phone]. Sincerely, Dr Harmeet Storey MD, [facility] - Urology Compassionate Specialist Care for the Genitourinary System Coding Level of Care Code Est Pt Level 4 (53554) Diagnoses Elevated PSA R97.20 Benign prostatic hyperplasia with urinary frequency N40.1; R35.0 Lower urinary tract symptom detail: urinary frequency Lower urinary tract symptom presence: symptoms present
--- OUTSIDE RECORDS SUMMARY | 2025-03-21 23:55 | XMS_ITS | Clinical Summary ---
Author Organization [facility] Address [address] [place] [address] Phone Care Team Providers Care Boom Conveyor Operator Name Role Phone Arabella Olvera MD Primary Care Provider [phone] Allergies Active Allergy Reactions Criticality Noted Date [...] file Insurance MEDICARE PART A & B [facility] EXTENSION MEDICARE SUPPLEMENT MEDICARE PART A & B [employer] MEDICARE SUPPLEMENT [place] [id number] MEDICARE PART A & B [facility] MEDICARE SUPPLEMENT MEDICARE PART A & B [facility] MEDICARE SUPPLEMENT MEDICARE PART A & B [employer] MEDICARE SUPPLEMENT [place] [id number] MEDICARE PART A & B [employer] EXTENSION MEDICARE SUPPLEMENT MEDICARE PART A & B [facility] MEDICARE SUPPLEMENT MEDICARE PART A & B [employer] MEDICARE SUPPLEMENT MEDICARE PART A & B MEDICARE SUPPLEMENT Care Teams Boom Conveyor Operator Relationship Specialty Start Date End Date Arabella Olvera MD [address] [place] [address] PCP - General Internal Medicine 01/07/21 Additional Source Comments The information contained in this document represents components of the legal health record. It is not the complete legal health record.[facility]
== END 2025-03-21 16:28 | disposition home or self-care (01) ==
LOC: HO.HUSH 15:23
PROVIDERS: PCP Internal Medicine; Visit Provider Urology
DX: R97.20 Elevated prostate specific antigen [PSA] (principal); N40.1 Benign prostatic hyperplasia with lower urinary tract symptoms; R35.0 Frequency of micturition
CPT/HCPCS: 99214

== ENCOUNTER → 2025-03-21 15:23 | Outpatient (BNVA) | payer MEDICARE, OTHER, SELFPAY | PROVIDERS: PCP Internal Medicine; Visit Provider Urology | DX: N40.1 Benign prostatic hyperplasia with lower urinary tract symptoms (principal); R35.0 Frequency of micturition; R97.20 Elevated prostate specific antigen [PSA] | CPT/HCPCS: 99212 ==